=== PATIENT | male | born 1945 | race Caucasian/White ===

== ENCOUNTER 2016-08-22 09:46 | Day surgery (SDC) | payer OTHER, BC ==
[2016-08-20 12:10] VITALS: BMI 48.7
[2016-08-22] MEDS: TROPICAMIDE 1% OPHTH SOLN 15 ML BOTTLE ONE ×3 (09:45→10:15)
[2016-08-22] MEDS: CIPROFLOXACIN 0.3% EYE DROPS 5 ML BOTTLE ONE ×3 (09:45→10:14)
[2016-08-22] MEDS: FLURBIPROFEN 0.03% OPHTH SOLN 2.5 ML BOTTLE ONE ×3 (09:45→10:15)
[2016-08-22] MEDS: PHENYLEPHRINE 2.5% OPHTH SOLN 15 ML BOTTLE ONE ×3 (09:45→10:15)
[2016-08-22] MEDS: CYCLOPENTOLATE HCL 1% OPHTH SOLN 2 ML BOTTLE ONE ×3 (09:45→10:14)
[~2016-08-22 09:46] MED LIST: ACETAMINOPHEN 325 MG TABLET (FP) PO PRN; CIPROFLOXACIN HCL 0.3% OPHTH 2.5ML BOTTLE OP SCH; CYCLOPENTOLATE HCL 1% OPHTH SOLN 2 ML BOTTLE OP SCH; FLURBIPROFEN 0.03% OPHTH SOLN 2.5 ML BOTTLE OP SCH; PHENYLEPHRINE 2.5% OPHTH SOLN 15 ML BOTTLE OP SCH; TROPICAMIDE 1% OPHTH SOLN 15 ML BOTTLE OP SCH
[2016-08-22] MEDS ORDERED: LIDOCAINE HCL 2% JELLY (5 ML/TUBE) TP ONE (10:30)
[2016-08-22] MEDS ORDERED: PHENYLEPHRINE/KETOROLAC 4 ML VIAL IO ONE ×2 (10:30→10:53)
[2016-08-22] MEDS ORDERED: MIDAZOLAM HCL 2 MG/2 ML SINGLE DOSE VIAL ONE (10:39)
[2016-08-22] MEDS ORDERED: POVIDONE-IODINE 5% OPHTHALMIC PREP 30 ML SOLUTION OD ONE (10:43)
[2016-08-22] MEDS ORDERED: LIDOCAINE HCL 1% PRESERVATIVE FREE - 30ML VIAL IO ONE (10:53)
[2016-08-22] MEDS ORDERED: TRYPAN BLUE 0.5 ML DISP.SYRIN IO ONE (10:53)
[2016-08-22] MEDS ORDERED: CHONDROITIN SU A/HYALUR SOD 1 KIT IO ONE (10:53)
[2016-08-22] MEDS ORDERED: BSS (NA/CA/MG/K) BALANCED SALT SOLUTION OPHTH SOLN 15 ML BOTTLE OD ONE (10:53)
[2016-08-22 11:45] VITALS: TEMP 97.6
[2016-08-22 13:21] VITALS: BP 98/54; PULSE 75
--- NOTE | 2016-08-23 03:00 | OP ---
DATE OF OPERATION: PREOPERATIVE DIAGNOSIS: Cataract, right eye. ASSOCIATED DIAGNOSIS: Flomax user and 5-mm pupil. POSTOPERATIVE DIAGNOSIS: Cataract, right eye. 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 OPERATION: Phacoemulsification of right cataract with capsulorrhexis with Trypan blue and posterior chamber intraocular lens implantation. Lens used SN60WF, 17.5 Diopter power, Serial No. [id number]. ANESTHESIA: Topical MAC. COMPLICATIONS: None. PROCEDURE: The patient was brought to the operating room and correctly identified along with the operative site and the correct intraocular lens obando. He was then prepped and draped in the usual sterile fashion including 5% Betadine solution in the conjunctival sac and an eyelid drape. An eyelid speculum was then placed into the right eye. The eye was inspected, and a 5-mm pupil was noted despite multiple sets of dilating drops. The paracentesis port was created and intracameral lidocaine was given. BSS which had been infused with Omidria from the phaco machine was given intracamerally as well to attempt to further dilate the pupil. This did not yield any larger pupil, however. The capsule was then stained with Trypan blue beneath an air bubble, and the Trypan blue irrigated out from the eye. Viscoelastic was then injected to inflate the anterior chamber, and a temporal clear corneal wound was created. A continuous circular capsulorrhexis was then performed. The nucleus was then hydro-dissected with BSS and removed with phacoemulsification via the divide and conquer approach. Upon the last quadrant, the pupil was noted immediately to begin to constrict; however, the remainder of the nucleus as well as epinuclear and cortical material were removed without complication. Viscoelastic was then injected to viscodilate the pupil as well as inflate the capsular bag. The lens was injected into capsular bag. The viscoelastic was removed from the eye. Once again the pupil was noted to be approximately 4 to 5 mm. At the end of the procedure, the intraocular lens was noted to be well centered and covered by the anterior capsule border. All wounds were tested and found to be watertight, no suture was placed. Topical Vancomycin was placed and the eye patched and shielded. The patient was then discharged from the operating room in stable condition. KERLINE NORIEGA M.D. [id number] MTDD
== END 2016-08-22 12:45 | disposition home or self-care (01) ==
LOC: JASU-SURG 09:46
PROVIDERS: ATTEND Ophthalmology
PROC: 08RJ3JZ Replacement of Right Lens with Synthetic Substitute, Percutaneous Approach (ICD-10-PCS; principal; 2016-08-22 10:00)
DX: H26.9 Unspecified cataract (principal); H57.03 Miosis; H21.81 Floppy iris syndrome
CPT/HCPCS: C9447

== ENCOUNTER 2016-09-19 09:21 | Day surgery (SDC) | payer OTHER, BC ==
[2016-08-31 13:11] VITALS: BMI 48.7
[2016-09-19] MEDS ORDERED: PHENYLEPHRINE/KETOROLAC 4 ML VIAL IO ONE (09:30)
[2016-09-19] MEDS ORDERED: CYCLOPENTOLATE HCL 1% OPHTH SOLN 2 ML BOTTLE ONE (09:44)
[2016-09-19] MEDS ORDERED: TROPICAMIDE 1% OPHTH SOLN 15 ML BOTTLE ONE (09:44)
[2016-09-19] MEDS ORDERED: CIPROFLOXACIN 0.3% EYE DROPS 5 ML BOTTLE ONE (09:44)
[2016-09-19] MEDS ORDERED: FLURBIPROFEN 0.03% OPHTH SOLN 2.5 ML BOTTLE ONE (09:44)
[2016-09-19] MEDS ORDERED: PHENYLEPHRINE 2.5% OPHTH SOLN 15 ML BOTTLE ONE (09:45)
[2016-09-19] MEDS ORDERED: MIDAZOLAM HCL 2 MG/2 ML SINGLE DOSE VIAL ONE (09:53)
[2016-09-19] MEDS ORDERED: TROPICAMIDE 1% OPHTH SOLN 15 ML BOTTLE OS ONE ×2 (10:15→10:25)
[2016-09-19] MEDS ORDERED: FLURBIPROFEN 0.03% OPHTH SOLN 2.5 ML BOTTLE OS ONE ×2 (10:15→10:25)
[2016-09-19] MEDS ORDERED: PHENYLEPHRINE 2.5% OPHTH SOLN 15 ML BOTTLE OS ONE ×2 (10:15→10:25)
[2016-09-19] MEDS ORDERED: CYCLOPENTOLATE HCL 1% OPHTH SOLN 2 ML BOTTLE OS ONE ×2 (10:15→10:25)
[2016-09-19] MEDS ORDERED: INSULIN (NOVOLOG) ASPART 100 UNITS/ML 10ML VIAL SQ ONE (10:15)
[2016-09-19] MEDS ORDERED: CIPROFLOXACIN HCL 0.3% OPHTH 2.5ML BOTTLE OS ONE ×2 (10:15→10:25)
[2016-09-19 10:19] VITALS: BP 114/66; PULSE 76; TEMP 97.8
== END 2016-09-19 11:41 | disposition home or self-care (01) ==
LOC: JASU-SURG 09:21
PROVIDERS: ATTEND Ophthalmology
PROC: 08Q0XZZ Repair Right Eye, External Approach (ICD-10-PCS; principal; 2016-09-19)
DX: Z53.8 Procedure and treatment not carried out for other reasons (principal)

== ENCOUNTER 2016-10-10 08:10 | Day surgery (SDC) | payer OTHER, BC ==
[2016-10-09 13:54] VITALS: BMI 48.7
[~2016-10-10 08:10] MED LIST changes: +BSS (NA/CA/MG/K) BALANCED SALT SOLUTION OPHTH SOLN 15 ML BOTTLE OS ONE; -CIPROFLOXACIN HCL 0.3% OPHTH 2.5ML BOTTLE OP SCH; -CYCLOPENTOLATE HCL 1% OPHTH SOLN 2 ML BOTTLE OP SCH; -FLURBIPROFEN 0.03% OPHTH SOLN 2.5 ML BOTTLE OP SCH; +LIDOCAINE HCL 2% JELLY (5 ML/TUBE) TP ONE; -PHENYLEPHRINE 2.5% OPHTH SOLN 15 ML BOTTLE OP SCH; +PHENYLEPHRINE/KETOROLAC 4 ML VIAL IO ONE; +POVIDONE-IODINE 5% OPHTHALMIC PREP 30 ML SOLUTION OS ONE; -TROPICAMIDE 1% OPHTH SOLN 15 ML BOTTLE OP SCH
[2016-10-10] MEDS: CIPROFLOXACIN HCL 0.3% OPHTH 2.5ML BOTTLE OP SCH ×3 (08:35→08:45)
[2016-10-10] MEDS: TROPICAMIDE 1% OPHTH SOLN 15 ML BOTTLE OP SCH ×3 (08:35→08:45)
[2016-10-10] MEDS: PHENYLEPHRINE 2.5% OPHTH SOLN 15 ML BOTTLE OP SCH ×3 (08:35→08:45)
[2016-10-10] MEDS: FLURBIPROFEN 0.03% OPHTH SOLN 2.5 ML BOTTLE OP SCH ×3 (08:35→08:45)
[2016-10-10] MEDS: CYCLOPENTOLATE HCL 1% OPHTH SOLN 2 ML BOTTLE OP SCH ×3 (08:35→08:45)
[2016-10-10] MEDS ORDERED: LIDOCAINE HCL 2% JELLY (5 ML/TUBE) TP ONE (09:00)
[2016-10-10] MEDS ORDERED: MIDAZOLAM HCL 2 MG/2 ML SINGLE DOSE VIAL ONE (09:13)
[2016-10-10] MEDS ORDERED: POVIDONE-IODINE 5% OPHTHALMIC PREP 30 ML SOLUTION OS ONE (09:18)
[2016-10-10] MEDS ORDERED: LIDOCAINE HCL 1% PRESERVATIVE FREE - 30ML VIAL IO ONE (09:25)
[2016-10-10] MEDS ORDERED: BSS (NA/CA/MG/K) BALANCED SALT SOLUTION OPHTH SOLN 15 ML BOTTLE OS ONE (09:25)
[2016-10-10] MEDS ORDERED: CHONDROITIN SU A/HYALUR SOD 1 KIT IO ONE (09:25)
[2016-10-10] MEDS ORDERED: TRYPAN BLUE 0.5 ML DISP.SYRIN IO ONE (09:25)
[2016-10-10] MEDS ORDERED: PHENYLEPHRINE/KETOROLAC 4 ML VIAL IO ONE (09:33)
[2016-10-10 10:03] VITALS: TEMP 97.9
[2016-10-10 11:39] VITALS: BP 103/57
[2016-10-10 11:40] VITALS: PULSE 78
--- NOTE | 2016-10-10 15:43 | OP ---
DATE OF OPERATION: DATE OF DICTATION: 10/10/2016 PREOPERATIVE DIAGNOSIS: Cataract left eye. ASSOCIATED DIAGNOSIS: Flomax user and persistent miosis. POSTOPERATIVE DIAGNOSIS: Cataract left eye. Intraoperative floppy iris syndrome. PROCEDURE: Phacoemulsification of left cataract with capsulorrhexis and Trypan blue and posterior chamber intraocular lens implantation. Lens used SN60WF, 16.5 Diopter power, Serial No. [id number]. ANESTHESIA: Topical MAC. COMPLICATIONS: None. PROCEDURE: The patient was brought to the operating room and correctly identified along with the operative site as well as correct intraocular lens obando. The patient was then prepped and draped in the usual sterile fashion including 5% Betadine solution in the conjunctival sac and an eyelid drape. An eyelid speculum was then placed into the left eye. The cataract was inspected and a 5-mm pupil was noted with the cortical cataract. A paracentesis port was created and intracameral lidocaine 0.5 mL of 1% preservative-free lidocaine was given as well 0.2 mL of the BSS which had been spiked with Omidria that was given intracameral as well to try to dilate the pupil. The pupil did not dilate further. An air bubble was then placed into the anterior chamber and the capsule stained with Trypan blue to assist with the capsulorrhexis. Viscoelastic was placed into the eye and a temporal clear corneal wound was created. The pupil was noted to expand to approximately 6-mm. A continuous circular capsulorrhexis was subsequently performed. The nucleus was then hydro-dissected with BSS and removed with phacoemulsification. During the phacoemulsification, the iris was noted to be very floppy. However, the nucleus was still removed without any complication. The epinuclear and cortical material were then irrigated and aspirated from the eye. Once again, the iris was noted to be floppy. Viscoelastic was then injected to inflate the anterior chamber and inflate the capsular bag. The lens was injected into the capsular bag. The Viscoelastic was then irrigated and aspirated from the eye. All wounds were then tested and found to be watertight. No suture was placed. The lens was noted to be well centered and covered by the anterior capsular border. Topical Vancomycin was given. The eye was patched and shielded. The patient was discharged from the operating room in stable condition. Olena [id number] MTDAlice
== END 2016-10-10 11:00 | disposition home or self-care (01) ==
LOC: JASU-SURG 08:10
PROVIDERS: ATTEND Ophthalmology
PROC: 08RK3JZ Replacement of Left Lens with Synthetic Substitute, Percutaneous Approach (ICD-10-PCS; principal; 2016-10-10 09:00)
DX: H26.9 Unspecified cataract (principal); H57.03 Miosis; H21.81 Floppy iris syndrome; T44.6X5A Adverse effect of alpha-adrenoreceptor antagonists, initial encounter
CPT/HCPCS: C9447

== ENCOUNTER 2018-10-27 12:14 | Day surgery (SDC) | payer OTHER, BC ==
[2018-10-27 12:33] VITALS: BMI 46.9
--- NOTE | 2018-10-27 14:02 | OP ---
Operative Note - Note: Operative Date: 10/27/18 Pre-Operative Diagnosis: Urinary retention Incontinence Operation: Placement of suprapubic tube Findings: bladder erythema Post-Operative Diagnosis: Same as Pre-op Surgeon: Kuldeep Montana MD. Anesthesia: Spinal Estimated Blood Loss (mls): 10 Drains & Tubes with Location: Suprapubic tube Operative Report Dictated: Yes
[2018-10-27] MEDS ORDERED: ceFAZolin SODIUM 1 GM VIAL IVPB ONE (14:30)
[2018-10-27] MEDS ORDERED: LIDOCAINE HCL 2% (50ML VIAL) NR ONE ×2 (14:41)
[2018-10-27] MEDS ORDERED: ACETAMINOPHEN 325 MG TABLET (FP) PO PRN (15:45)
[2018-10-27] MEDS ORDERED: ONDANSETRON 4 MG/2 ML VIAL IVPUSH PRN (15:45)
[2018-10-27 17:48] VITALS: TEMP 98.2
[2018-10-27 19:31] VITALS: BP 147/91; PULSE 77
--- NOTE | 2018-11-20 13:53 | OP ---
DATE OF OPERATION: 10/27/2018 PREOPERATIVE DIAGNOSES: Urinary retention, incontinence. POSTOPERATIVE DIAGNOSES: Urinary retention, incontinence. OPERATION: Placement of suprapubic tube. HISTORY: A 73-year-old gentleman with a chronic suprapubic tube, who was seen in the emergency room recently after self-dislodging. The patient has been managed with a Santizo catheter. After discussing treatment options and reviewing the long-term plan, it was decided to continue with suprapubic tube drainage. Risks and benefits were explained. All questions were answered. BRIEF OPERATIVE NOTE: Patient brought to the operating room, placed in supine position. Due to the patient's morbid obesity, he was placed in a semi-Trendelenburg position after general anesthesia was administered. Spinal anesthesia was attempted, however, was unsuccessful. At this time, intravenous antibiotics were given. A Lowsley transurethral instrument was placed. Lidocaine 2%, approximately 10 mL, was injected subcutaneously. A transverse incision was made approximately 2 cm. Again, due to patient's body habitus, the Lowsley was somewhat deep within the subcutaneous tissue. At this time, a catheter was placed into the Lowsley instrument. The catheter was then brought out transurethrally. At this time, a cystoscopy was performed. The position was noted to be in normal position, pulling the catheter tip back into the bladder. The balloon was inflated with approximately 10 mL of normal saline. There was no evidence of active bleeding. At this time, the incision was closed using a subcuticular 3-0 chromic as well as skin sutures in interrupted fashion. The tube was then secured with nylon suture. The patient was brought to the recovery room in stable and satisfactory condition. Olena [id number]
== END 2018-10-27 19:10 | disposition home or self-care (01) ==
LOC: JASU-SURG 12:14
PROVIDERS: ATTEND Urology
PROC: 0T9B30Z Drainage of Bladder with Drainage Device, Percutaneous Approach (ICD-10-PCS; principal; 2018-10-27 14:00)
DX: R33.9 Retention of urine, unspecified (principal); R32 Unspecified urinary incontinence; E66.01 Morbid (severe) obesity due to excess calories; E11.9 Type 2 diabetes mellitus without complications; I10 Essential (primary) hypertension; G47.30 Sleep apnea, unspecified; I50.9 Heart failure, unspecified
CPT/HCPCS: 82962; 94760

== ENCOUNTER 2019-01-01 15:22 | Inpatient (IN) | payer OTHER, BC ==
--- NOTE | 2019-01-01 15:29 | PDOC ---
Rapid Medical Evaluation Chief Complaint: Wound Time Seen by Provider: 01/01/19 15:28 Medical Evaluation: Allergies Allergy/AdvReac Type Severity Reaction Status Date / Time lisinopril Allergy Swelling Verified 10/10/16 08:47 01/01/19 15:28 I have performed a brief in-person evaluation of this patient. The patient presents with a chief complaint of: sent by wound care for admission Pertinent physical exam findings: wounds to BLE I have ordered the following: admission orders The patient will proceed to the ED for further evaluation. Discharge Disposition - Diagnosis Leg wound, right - Referrals - Patient Instructions - Post Discharge Activity
[2019-01-01 17:14] LABS: BASO % 0.7 % (0-2.0); EOS % 0.5 % (0-4.5); HEMATOCRIT 44.9 % (35.4-49); HEMOGLOBIN 14.8 GM/dL (11.7-16.9); LYMPH % 5.8 % (8-40); MCH 27.3 pg (25.7-33.7); MCHC 32.9 g/dl (32.0-35.9); MEAN CELL VOLUME 82.8 fl (80-96); MEAN PLT VOLUME 8.4 fl (7.5-11.1); MONO % 7.3 % (3.8-10.2); NEUT % 85.7 % (42.8-82.8); PLATELET COUNT 215 K/MM3 (134-434); RBC 5.42 M/mm3 (4.00-5.60); RDW 19.4 % (11.9-15.9); WHITE BLOOD COUNT 12.4 K/mm3 (4.0-10.0)
[2019-01-01] MEDS ORDERED: PIPERACILLIN/TAZOB 4.5 GM 4.5 GM in DEXTROSE 5%-WATER 100 ML IVPB ONE (17:21)
[2019-01-01] MEDS ORDERED: VANCOMYCIN 1 GM in D5W (PRE-DOCKED) 1,000 MG/250 ML IVPB ONE (17:21)
--- NOTE | 2019-01-01 17:21 | PDOC ---
History of Present Illness - General Chief Complaint: Wound Stated Complaint: WOUND INFECTION Time Seen by Provider: 01/01/19 15:28 History Source: Patient Exam Limitations: No Limitations - History of Present Illness Initial Comments: 01/01/19 17:22 73 yo male pmh HTN, urinary incontinence requiring suprapubic catheter, DM and chronic diabetic foot ulcers presents [facility] (Dr. Rosas ) for admission for diabetic foot ulcers requiring IV antibiotics. Pt states both feet are swollen with foul smelling clear drainage for the past 1 week but denies S/C/N/V, abdominal pain, CP, SOB, calf tenderness, recent travel. Pt at baseline health and ADLs. Past History - Past Medical History Allergies/Adverse Reactions: Allergies Allergy/AdvReac Type Severity Reaction Status Date / Time lisinopril Allergy Swelling Verified 01/01/19 15:30 Home Medications: Ambulatory Orders Avodart 0.5 mg PO DAILY 06/28/11 Klor-Con-Ef 25 Meq Tab Eff 20 meq PO BID 06/28/11 Xalatan Ophth Drops 1 gtt OU HS 06/28/11 Tamsulosin HCl [Flomax] 0.4 mg PO DAILY 02/27/13 Glyburide/Metformin HCl [Glyburide-Metformin 5-500 mg] 1 each PO DAILY 10/09/16 Oxycodone HCl/Acetaminophen [Percocet 5-325 mg Tablet] 1 tab PO Q4H PRN Sitagliptin Phos/Metformin HCl [Janumet 50-500 mg Tablet] 1 each PO DAILY Torsemide [Demadex] 5 mg PO DAILY 10/09/16 Apixaban [Eliquis] 5 mg PO DAILY 10/27/18 Bumetanide 2 mg PO DAILY 10/27/18 Bupropion HCl [Wellbutrin Sr] 100 mg PO DAILY 10/27/18 Escitalopram Oxalate [Lexapro -] 10 mg PO DAILY 10/27/18 Gabapentin [Neurontin -] 300 mg PO DAILY 10/27/18 Hydralazine HCl 10 mg PO DAILY 10/27/18 Insulin Glargine,Hum.rec.anlog [Toujeo Solostar] 0 unit SQ DAILY 10/27/18 Insulin Lispro [Humalog] 0 unit SQ DAILY 10/27/18 Metoprolol Tartrate [Lopressor -] 25 mg PO DAILY 10/27/18 Mirabegron [Myrbetriq] 50 mg PO DAILY 10/27/18 Anemia: No Asthma: No Cancer: No Cardiac Disorders: Yes CVA: No COPD: No CHF: Yes Dementia: Yes (DEMENTIA BEGINNING) Diabetes: Yes GI Disorders: No Disorders: Yes (YOUSIF CATH) HTN: Yes Hypercholesterolemia: Yes Liver Disease: No Seizures: No Thyroid Disease: No Other medical history: obese - Surgical History Abdominal Surgery: Yes (2 hernia repairs) Neurologic Surgery: No Orthopedic Surgery: Yes (bilateral knee replacements) - Suicide/Smoking/Psychosocial Hx Smoking History: Never smoked Have you smoked in the past 12 months: No Information on smoking cessation initiated: No Hx Alcohol Use: No Drug/Substance Use Hx: No Substance Use Type: None Hx Substance Use Treatment: No Review of Systems - Review of Systems Constitutional: No: Chills, Fever Respiratory: No: Shortness of Breath Cardiac (ROS): Yes: Edema (chronic bilateral LL). No: Chest Pain ABD/GI: No: Constipated, Diarrhea, Nausea, Vomiting : Yes: Other (suprapubic catheter) Musculoskeletal: No: Back Pain Neurological: No: Numbness, Paresthesia *Physical Exam - Vital Signs Last Vital Signs Temp Pulse Resp BP Pulse Ox 98.2 F 62 19 126/74 95 01/01/19 15:28 01/01/19 15:28 01/01/19 15:28 01/01/19 15:28 01/01/19 15:28 - Physical Exam General Appearance: Yes: Nourished, Appropriately Dressed. No: Apparent Distress HEENT: positive: EOMI, Normal Voice Neck: positive: Supple. negative: Carotid bruit Respiratory/Chest: positive: Lungs Clear, Normal Breath Sounds. negative: Respiratory Distress, Rapid RR, Crackles, Rales, Rhonchi, Wheezing Cardiovascular: positive: Regular Rhythm, Regular Rate, S1, S2. negative: Edema , JVD, Murmur Vascular Pulses: Dorsalis-Pedis (R): 2+, Doralis-Pedis (L): 2+ Gastrointestinal/Abdominal: positive: Flat, Soft. negative: Protuberent, Distended, Guarding, Rebound, Tenderness Musculoskeletal: negative: CVA Tenderness Extremity: positive: Other (bilateral diabetic foot ulcers with drainage) Integumentary: positive: Normal Color, Dry, Warm Neurologic: positive: Fully Oriented, Alert, Normal Mood/Affect, Normal Response ED Treatment Course - LABORATORY CBC & Chemistry Diagram: 01/01/19 16:40 01/01/19 16:40 - ADDITIONAL ORDERS Additional order review: 01/01/19 16:40 RBC 5.42 MCV 82.8 MCHC 32.9 RDW 19.4 H MPV 8.4 Neutrophils % 85.7 H Lymphocytes % 5.8 L Monocytes % 7.3 Eosinophils % 0.5 Basophils % 0.7 Medical Decision Making - Medical Decision Making 01/01/19 17:27 73 yo male pmh HTN, urinary incontinence requiring suprapubic catheter, DM and chronic diabetic foot ulcers presents [facility] (Dr. Rosas ) for admission for diabetic foot ulcers requiring IV antibiotics. Pt states both feet are swollen with foul smelling clear drainage for the past 1 week but denies S/C/N/V, abdominal pain, CP, SOB, calf tenderness, recent travel. Pt at baseline health and ADLs. vitals WNL, no systemic s/s of infection other than infected bilateral feet pre admission labs sent, EKG, CXR, blood cult, lactate, UA, UC See PE EKG shows A fib ventricular rate 89. no hx of afib, denies CP, palpitations, SOB. Will defer to admitting team for further treatment Pt given vanc/zosyn for empiric treatment Lactate 2.4, will give fluids Labs otherwise unremarkable Discussed case with Dr. Calderon who agrees to have pt admitted for IV antibiotics 01/01/19 17:[address] Ferrara, agrees to have pt admitted for antibiotics *DC/Admit/Observation/Transfer Diagnosis at time of Disposition: Leg wound, right, Right foot ulcer - Discharge Dispostion Condition at time of disposition: Stable Decision to Admit order: Yes - Referrals - Patient Instructions - Post Discharge Activity
[2019-01-01 17:25] LABS: ALBUMIN 3.4 g/dl (3.4-5.0); BILIRUBIN,TOTAL 1.1 mg/dL (0.2-1); CALCIUM 8.9 mg/dL (8.5-10.1); CREATININE 1.5 mg/dL (0.55-1.3); TOT PROT 7.9 g/dl (6.4-8.2)
[2019-01-01] MEDS ORDERED: VANCOMYCIN 1 GRAM (PRE-DOCKED) 1,000 MG/250 ML BAG IVPB ONE (17:30)
[2019-01-01] MEDS ORDERED: PIPERACILLIN/TAZOB 4.5 GM 4.5 GM/100 ML BAG IVPB ONE (17:30)
[2019-01-01] MEDS ORDERED: SODIUM CHLORIDE 1,000 ML IV STA (17:35)
--- NOTE | 2019-01-01 17:51 | PDOC ---
Attending Attestation - Resident Resident Name: LexiGarrick savage - ED Attending Attestation I have performed the following: I have examined & evaluated the patient, The case was reviewed & discussed with the resident, I agree w/resident's findings & plan - HPI HPI: 01/01/19 17:47 73 yo male pmh HTN, urinary incontinence requiring suprapubic catheter, DM and chronic diabetic foot ulcers presents [facility] (Dr. Rosas ) for admission for diabetic foot ulcers requiring IV antibiotics. Pt states both feet are swollen with foul smelling clear drainage for the past 1 week - Physicial Exam PE: 01/01/19 17:47 Agree with the resident's HPI and PE as documented in the electronic medical record. NAD, well appearing, EOMI, PERRL, nl conjunctiva, anicteric; neck supple. lungs clear, RRR, abdomen soft nontender. VIRGEN x4, b/l feet neuropathy. +bilateral peripheral edema, 4+ edema right dorsal foot with anterior ulcer, +serosanguinous drainage nontender no warmth no crepitus 1+ pedal pulses. cap refill <2 sec - Medical Decision Making 01/01/19 17:48 hpi as documented VS reviewed, wnl no fever or systemic findings DDX osteomyelitis, cellulitis, wound infection, bacteremia. ulcer, gangrene. labs unremarkable - lactic elevated, 2.4, give hydration, recheck. likely from poor clearance/infection or dehydration cultures taken - wound and blood xray IV zosyn and vancomycin for coverage, given risk factors, comorbidities/poor wound healing admit to hospitalist team for further medical management for foot ulcer/ superimposed infection podiatry cs as inpatient., Dr Rosas 01/01/19 17:50
[2019-01-01 18:22] LABS: EPI CELLS 1.2 /HPF (0-5/HPF); HYALINE CASTS 14 /lpf (0-8); PH,URINE 7.5 (5.0-8.0); URINE APPEARANCE CLOUDY; URINE BILIRUBIN NEGATIVE (NEGATIVE); URINE COLOR YELLOW; URINE GLUCOSE (UA) NEGATIVE (NEGATIVE); URINE KETONE NEGATIVE (NEGATIVE); URINE LEUK ESTERASE 3+ (NEGATIVE); URINE NITRITE POSITIVE (NEGATIVE); URINE PROTEIN 1+ (NEGATIVE); URINE RBC 4 /hpf (0-4); URINE WBC 57 /hpf (0-5)
--- NOTE | 2019-01-01 20:54 | HP ---
CHIEF COMPLAINT: swollen feet b/l PCP: HISTORY OF PRESENT ILLNESS: 73yo man sent in from podiatry clinic to the hospital after being found with b /l red, edematous, foul smelling feet. Patient reports that he has had his feet like this for the last week at least one week ER course was notable for: (1) zosyn (2) vancomycin (3) IV fluid Recent Travel: no PAST MEDICAL HISTORY: uncontrolled DM - for at least 5 years, morbid obesity, DM , HTN, depression, PAST SURGICAL HISTORY: abdominal hernia repair x2, b/l knee replacements Social History: Smoking: denied Alcohol: denied Drugs: denied Family History: no Allergies lisinopril Allergy (Verified 01/01/19 15:30) Swelling HOME MEDICATIONS: Home Medications Medication Instructions Recorded Avodart 0.5 mg PO DAILY 06/28/11 Klor-Con-Ef 25 Meq Tab Eff 20 meq PO BID 06/28/11 Xalatan Ophth Drops 1 gtt OU HS 06/28/11 Tamsulosin HCl [Flomax] 0.4 mg PO DAILY 02/27/13 Glyburide/Metformin HCl 1 each PO DAILY 10/09/16 [Glyburide-Metformin 5-500 mg] Oxycodone HCl/Acetaminophen 1 tab PO Q4H PRN 10/09/16 [Percocet 5-325 mg Tablet] Sitagliptin Phos/Metformin HCl 1 each PO DAILY 10/09/16 [Janumet 50-500 mg Tablet] Torsemide [Demadex] 5 mg PO DAILY 10/09/16 Apixaban [Eliquis] 5 mg PO DAILY 10/27/18 Bumetanide 2 mg PO DAILY 10/27/18 Bupropion HCl [Wellbutrin Sr] 100 mg PO DAILY 10/27/18 Escitalopram Oxalate [Lexapro -] 10 mg PO DAILY 10/27/18 Gabapentin [Neurontin -] 300 mg PO DAILY 10/27/18 Hydralazine HCl 10 mg PO DAILY 10/27/18 Insulin Glargine,Hum.rec.anlog 0 unit SQ DAILY 10/27/18 [Toujeo Solostar] Insulin Lispro [Humalog] 0 unit SQ DAILY 10/27/18 Metoprolol Tartrate [Lopressor -] 25 mg PO DAILY 10/27/18 Mirabegron [Myrbetriq] 50 mg PO DAILY 10/27/18 REVIEW OF SYSTEMS CONSTITUTIONAL: Absent: fever, chills, diaphoresis, generalized weakness, malaise, loss of appetite, weight change HEENT: Absent: rhinorrhea, nasal congestion, throat pain, throat swelling, difficulty swallowing, mouth swelling, ear pain, eye pain, visual changes CARDIOVASCULAR: Absent: chest pain, syncope, palpitations, irregular heart rate, lightheadedness , peripheral edema RESPIRATORY: Absent: cough, shortness of breath, dyspnea with exertion, orthopnea, wheezing, stridor, hemoptysis GASTROINTESTINAL: Absent: abdominal pain, abdominal distension, nausea, vomiting, diarrhea, constipation, melena, hematochezia GENITOURINARY: Absent: dysuria, frequency, urgency, hesitancy, hematuria, flank pain, genital pain MUSCULOSKELETAL: Absent: myalgia, arthralgia, joint swelling, back pain, neck pain present- b/l feet pain, swelling SKIN: Absent: rash, itching, pallor HEMATOLOGIC/IMMUNOLOGIC: Absent: easy bleeding, easy bruising, lymphadenopathy, frequent infections ENDOCRINE: Absent: unexplained weight gain, unexplained weight loss, heat intolerance, cold intolerance NEUROLOGIC: Absent: headache, focal weakness or paresthesias, dizziness, unsteady gait, seizure, mental status changes, bladder or bowel incontinence PSYCHIATRIC: Absent: anxiety, depression, suicidal or homicidal ideation, hallucinations. PHYSICAL EXAMINATION Vital Signs - 24 hr 01/01/19 15:28 Temperature 98.2 F Pulse Rate 62 Respiratory 19 Rate Blood Pressure 126/74 O2 Sat by Pulse 95 Oximetry (%) GENERAL: Awake, alert, and fully oriented, in no acute distress, morbidly obese HEAD: Normal with no signs of trauma. EYES: Pupils equal, round and reactive to light, extraocular movements intact, sclera anicteric, conjunctiva clear. No lid lag. EARS, NOSE, THROAT: Ears normal, nares patent, oropharynx clear without exudates. Moist mucous membranes. NECK: Normal range of motion, supple without lymphadenopathy, JVD, or masses. LUNGS: Breath sounds equal, clear to auscultation bilaterally. No wheezes, and no crackles. No accessory muscle use. HEART: Regular rate and rhythm, normal S1 and S2 without murmur, rub or gallop. ABDOMEN: Soft, obese, nontender, not distended, normoactive bowel sounds, no guarding, no rebound, no masses., suprapubic catheter MUSCULOSKELETAL: Normal range of motion at all joints. No bony deformities or tenderness. No CVA tenderness. UPPER EXTREMITIES: 2+ pulses, warm, well-perfused. No cyanosis. No clubbing. No peripheral edema. LOWER EXTREMITIES: 2+ pulses, warm, lower ext erythematous feet b/l, purulent d/ c from toes b/l appreciated- possible wet gangrene, erythema extends up to thighs b/l, NEUROLOGICAL: Cranial nerves II-XII intact. Normal speech. Normal gait. PSYCHIATRIC: Cooperative. Good eye contact. Appropriate mood and affect. SKIN: Warm, dry, normal turgor, no rashes or lesions noted, normal capillary refill. Laboratory Results - last 24 hr 01/01/19 01/01/19 01/01/19 16:40 16:40 16:40 WBC 12.4 H RBC 5.42 Hgb 14.8 Hct 44.9 MCV 82.8 MCH 27.3 MCHC 32.9 RDW 19.4 H Plt Count 215 MPV 8.4 Absolute Neuts (auto) 10.6 H Neutrophils % 85.7 H Lymphocytes % 5.8 L Monocytes % 7.3 Eosinophils % 0.5 Basophils % 0.7 Nucleated RBC % 0 Sodium 138 Potassium 4.0 Chloride 101 Carbon Dioxide 28 Anion Gap 10 BUN 33.0 H Creatinine 1.5 H Est GFR (CKD-EPI)AfAm 52.03 Est GFR (CKD-EPI)NonAf 44.89 Random Glucose 86 Lactic Acid 2.4 H* Calcium 8.9 Total Bilirubin 1.1 H AST 19 ALT 25 Alkaline Phosphatase 177 H Total Protein 7.9 Albumin 3.4 Urine Color Urine Appearance Urine pH Ur Specific [place] Urine Protein Urine Glucose (UA) Urine Ketones Urine Blood Urine Nitrite Urine Bilirubin Urine Urobilinogen Ur Leukocyte Esterase Urine WBC (Auto) Urine RBC (Auto) Urine Casts (Auto) U Pathogenic Cast Auto U Epithel Cells (Auto) Urine Bacteria (Auto) Urine Yeast (Auto) 01/01/19 18:00 WBC RBC Hgb Hct MCV MCH MCHC RDW Plt Count MPV Absolute Neuts (auto) Neutrophils % Lymphocytes % Monocytes % Eosinophils % Basophils % Nucleated RBC % Sodium Potassium Chloride Carbon Dioxide Anion Gap BUN Creatinine Est GFR (CKD-EPI)AfAm Est GFR (CKD-EPI)NonAf Random Glucose Lactic Acid Calcium Total Bilirubin AST ALT Alkaline Phosphatase Total Protein Albumin Urine Color Yellow Urine Appearance Cloudy Urine pH 7.5 Ur Specific [place] 1.010 Urine Protein 1+ H Urine Glucose (UA) Negative Urine Ketones Negative Urine Blood Negative Urine Nitrite Positive H Urine Bilirubin Negative Urine Urobilinogen 1.0 Ur Leukocyte Esterase 3+ H Urine WBC (Auto) 57 Urine RBC (Auto) 4 Urine Casts (Auto) 14 U Pathogenic Cast Auto None U Epithel Cells (Auto) 1.2 Urine Bacteria (Auto) 2406.0 Urine Yeast (Auto) None ASSESSMENT/PLAN: #73yo man with b/l foot cellulitis with possible wet gangrene - foul smelling erythematous feet b/l, discharge+ . Should r/o b/l osteomyelitis. -admit to med/surg -zosyn -vancomycin -culture from feet obtained -blood culture x2 -xray of feet b/l -crp, esr -mri of feet b/l -oxycodon prn for pain control -repeat lactate in am #ANNETTE- may be from infection, prerenal azotemia -i/o -daily weight -renal u/s -avoid nephrotoxins -IV fluid hydration #HTN -hydralazine -metoprolol #DM - uncontrolled hyperglycemia -novolog sliding scale -diabetic diet #A fib- rate controlled -c/w eliquis -metoprolol for rate control dvt ppx - on eliquis Visit type - Emergency Visit Emergency Visit: Yes ED Registration Date: 01/01/19 Care time: The patient presented to the Emergency Department on the above date and was hospitalized for further evaluation of their emergent condition. - New Patient This patient is new to me today: Yes Date on this admission: 01/01/19 - Critical Care Critical Care patient: No
[2019-01-01] MEDS ORDERED: SODIUM CHLORIDE 1,000 ML IV SCH (21:00)
[2019-01-01] MEDS: INSULIN SLIDING SCALE (NOVOLOG) 1 VIAL SQ SCH (21:36)
[2019-01-01] MEDS ORDERED: ACETAMINOPHEN 325 MG TABLET (FP) PO PRN (21:56)
[2019-01-01] MEDS: LATANOPROST 0.005% OPHTH SOLN 2.5ML BOTTLE OU SCH (23:55)
[2019-01-02] MEDS: INSULIN SLIDING SCALE (NOVOLOG) 1 VIAL SQ SCH ×4 (06:16→21:59)
--- NOTE | 2019-01-02 08:25 | CONSULT ---
Consult Consult Specialty:: Podiatry Reason for Consultation:: Weeping foot and leg wounds - Alcohol/Substance Use Hx Alcohol Use: No - Smoking History Smoking history: Never smoked Have you smoked in the past 12 months: No Home Medications - Allergies Allergies/Adverse Reactions: Allergies Allergy/AdvReac Type Severity Reaction Status Date / Time lisinopril Allergy Swelling Verified 01/01/19 15:30 - Home Medications Home Medications: Ambulatory Orders Avodart 0.5 mg PO DAILY 06/28/11 Klor-Con-Ef 25 Meq Tab Eff 20 meq PO BID 06/28/11 Xalatan Ophth Drops 1 gtt OU HS 06/28/11 Tamsulosin HCl [Flomax] 0.4 mg PO DAILY 02/27/13 Glyburide/Metformin HCl [Glyburide-Metformin 5-500 mg] 1 each PO DAILY 10/09/16 Oxycodone HCl/Acetaminophen [Percocet 5-325 mg Tablet] 1 tab PO Q4H PRN Sitagliptin Phos/Metformin HCl [Janumet 50-500 mg Tablet] 1 each PO DAILY Torsemide [Demadex] 5 mg PO DAILY 10/09/16 Apixaban [Eliquis] 5 mg PO DAILY 10/27/18 Bumetanide 2 mg PO DAILY 10/27/18 Bupropion HCl [Wellbutrin Sr] 100 mg PO DAILY 10/27/18 Escitalopram Oxalate [Lexapro -] 10 mg PO DAILY 10/27/18 Gabapentin [Neurontin -] 300 mg PO DAILY 10/27/18 Hydralazine HCl 10 mg PO DAILY 10/27/18 Insulin Glargine,Hum.rec.anlog [Toujeo Solostar] 0 unit SQ DAILY 10/27/18 Insulin Lispro [Humalog] 0 unit SQ DAILY 10/27/18 Metoprolol Tartrate [Lopressor -] 25 mg PO DAILY 10/27/18 Mirabegron [Myrbetriq] 50 mg PO DAILY 10/27/18 Physical Exam Vital Signs: Vital Signs Temperature 97.8 F 01/02/19 05:49 Pulse Rate 81 01/02/19 05:49 Respiratory Rate 20 01/02/19 05:49 Blood Pressure 112/61 01/02/19 05:49 O2 Sat by Pulse Oximetry (%) 96 01/01/19 21:30 Extremities: Yes: Other (nvs decreased b/l, +moderate to severe weeping edema b / lower extremity, +grade 2-3 wounds dorsal 2nd mpj b/l, +grade 1 wound sub met 1 right) Labs: CBC, BMP 01/01/19 16:40 01/01/19 16:40 Imaging - Results X-ray: Report Reviewed (b/l) Assessment/Plan fluid retention weeping foot and leg wounds cellulitis b/l lower extremities Awaiting ID and vascular recommendations. Swab open areas with betadine b/l feet and legs. Will follow. Read and appreciated radiology results.
[2019-01-02] MEDS: oxyCODONE HCL 5 MG TABLET PO PRN (09:00)
[2019-01-02] MEDS: GABAPENTIN 300 MG CAPSULE (FP) PO SCH (09:02)
[2019-01-02] MEDS: TAMSULOSIN HCL 0.4 MG CAP PO SCH (09:02)
[2019-01-02] MEDS: APIXABAN 5 MG TABLET PO SCH ×2 (09:03→21:59)
[2019-01-02] MEDS: ESCITALOPRAM OXALATE 10 MG TABLET (FP) PO SCH (09:03)
[2019-01-02] MEDS ORDERED: PT OWN MED DRAWER 7, Y5N ONE (09:05)
[2019-01-02] MEDS ORDERED: hydrALAZINE HCL 10 MG TABLET PO SCH (10:00)
[2019-01-02] MEDS ORDERED: METOPROLOL TARTRATE 25 MG TABLET (FP) PO SCH (10:00)
[2019-01-02] MEDS ORDERED: TORSEMIDE 5 MG TABLET PO SCH (10:00)
[2019-01-02] MEDS ORDERED: BUMETANIDE 1 MG TABLET PO SCH (10:00)
--- NOTE | 2019-01-02 10:12 | CON.ID ---
Consult Consult Specialty:: infectious diseases Referred by:: Reason for Consultation:: b/l foot infection - History of Present Illness Chief Complaint: swelling of the feet and drainage from them--specially rt one History of Present Illness: 73 yo male pmh HTN, urinary incontinence requiring suprapubic catheter, DM and chronic diabetic foot ulcers presents for admission for diabetic foot ulcers requiring IV antibiotics. Pt states both feet are swollen with foul smelling clear drainage for the past 1 week but denies S/C/N/V, abdominal pain, CP, SOB, calf tenderness, recent travel. Pt at baseline health and ADLs. according to the patient the left one has been like this for more than 3 weeks and the rt one occured in a week. he has been having leg swelling for more than 2 years,but according to him this problems now is only couple of weeks back about his feet - History Source History Provided By: Patient Limitations to Obtaining History: No Limitations - Alcohol/Substance Use Hx Alcohol Use: No - Smoking History Smoking history: Never smoked Have you smoked in the past 12 months: No Home Medications - Allergies Allergies/Adverse Reactions: Allergies Allergy/AdvReac Type Severity Reaction Status Date / Time lisinopril Allergy Swelling Verified 01/01/19 15:30 - Home Medications Home Medications: Ambulatory Orders Avodart 0.5 mg PO DAILY 06/28/11 Klor-Con-Ef 25 Meq Tab Eff 20 meq PO BID 06/28/11 Xalatan Ophth Drops 1 gtt OU HS 06/28/11 Tamsulosin HCl [Flomax] 0.4 mg PO DAILY 02/27/13 Glyburide/Metformin HCl [Glyburide-Metformin 5-500 mg] 1 each PO DAILY 10/09/16 Oxycodone HCl/Acetaminophen [Percocet 5-325 mg Tablet] 1 tab PO Q4H PRN Sitagliptin Phos/Metformin HCl [Janumet 50-500 mg Tablet] 1 each PO DAILY Torsemide [Demadex] 5 mg PO DAILY 10/09/16 Apixaban [Eliquis] 5 mg PO DAILY 10/27/18 Bumetanide 2 mg PO DAILY 10/27/18 Bupropion HCl [Wellbutrin Sr] 100 mg PO DAILY 10/27/18 Escitalopram Oxalate [Lexapro -] 10 mg PO DAILY 10/27/18 Gabapentin [Neurontin -] 300 mg PO DAILY 10/27/18 Hydralazine HCl 10 mg PO DAILY 10/27/18 Insulin Glargine,Hum.rec.anlog [Toujeo Solostar] 0 unit SQ DAILY 10/27/18 Insulin Lispro [Humalog] 0 unit SQ DAILY 10/27/18 Metoprolol Tartrate [Lopressor -] 25 mg PO DAILY 10/27/18 Mirabegron [Myrbetriq] 50 mg PO DAILY 10/27/18 Review of Systems - Review of Systems Constitutional: reports: No Symptoms Eyes: reports: No Symptoms HENT: reports: No Symptoms Neck: reports: No Symptoms Cardiovascular: reports: No Symptoms Respiratory: reports: No Symptoms Gastrointestinal: reports: No Symptoms Genitourinary: reports: No Symptoms Musculoskeletal: reports: Other Integumentary: reports: Blister, Erythema, Wound, Other (change in color) Neurological: reports: No Symptoms Endocrine: reports: No Symptoms Hematology/Lymphatic: reports: No Symptoms Psychiatric: reports: No Symptoms Physical Exam Vital Signs: Vital Signs Temperature 97.8 F 01/02/19 05:49 Pulse Rate 81 01/02/19 05:49 Respiratory Rate 20 01/02/19 05:49 Blood Pressure 112/61 01/02/19 05:49 O2 Sat by Pulse Oximetry (%) 96 01/01/19 21:30 Constitutional: Yes: Well Nourished, No Distress, Calm Cardiovascular: Yes: Pulse Irregular Respiratory: Yes: Regular, CTA Bilaterally Gastrointestinal: Yes: Normal Bowel Sounds, Soft Musculoskeletal: Yes: WNL Extremities: Yes: Erythema (of the foot,necrotic spot on the foot,draiange from the foot), Other Neurological: Yes: Alert, Oriented Psychiatric: Yes: Alert, Oriented Labs: CBC, BMP 01/01/19 16:40 01/01/19 16:40 Imaging - Results Chest X-ray: Report Reviewed, Image Reviewed X-ray: Report Reviewed, Image Reviewed Assessment/Plan ASSESSMENT/PLAN: #73yo man with b/l foot cellulitis w- foul smelling erythematous feet b/l, discharge+ . #ANNETTE- may be from infection, prerenal azotemia #HTN #DM A fib- plan will start patient on abx awaiting mri await cx report necrotic areas will d/w the podiatry team
--- NOTE | 2019-01-02 10:16 | PN ---
Progress Note, Physician Chief Complaint: AWAKE ALERT DENIES CP OR SOB EVENTS AND NOTES REVIEWED - Current Medication List Current Medications: Active Medications Acetaminophen (Tylenol -) 325 mg PO Q4H PRN PRN Reason: PAIN 6-10 Stop: 01/04/19 21:55 Last Admin: 01/02/19 09:02 Dose: 325 mg Apixaban (Eliquis -) 5 mg PO BID [facility] Last Admin: 01/02/19 09:03 Dose: 5 mg Bupropion HCl (Wellbutrin Xl -) 150 mg PO DAILY [facility] Last Admin: 01/02/19 09:03 Dose: 150 mg Dutasteride (Avodart -) 0.5 mg PO DAILY [facility] Escitalopram Oxalate (Lexapro -) 10 mg PO DAILY [facility] Last Admin: 01/02/19 09:03 Dose: 10 mg Gabapentin (Neurontin -) 300 mg PO DAILY [facility] Last Admin: 01/02/19 09:02 Dose: 300 mg Hydralazine HCl (Apresoline -) 10 mg PO DAILY [facility] Sodium Chloride (Normal Saline -) 1,000 mls @ 75 mls/hr IV ASDIR [facility] Last Admin: 01/01/19 23:55 Dose: 75 mls/hr Insulin Aspart (Novolog Vial Sliding Scale -) 1 vial SQ [facility]; Protocol Last Admin: 01/02/19 06:16 Dose: 2 units Latanoprost (Xalatan 0.005% Eye Drops -) 1 drop OU HS [facility] Last Admin: 01/01/19 23:55 Dose: 1 drop Metoprolol Tartrate (Lopressor -) 25 mg PO DAILY [facility] Oxycodone HCl (Roxicodone -) 5 mg PO Q4H PRN PRN Reason: PAIN 6-10 Last Admin: 01/02/19 09:00 Dose: 5 mg Tamsulosin HCl (Flomax -) 0.4 mg PO DAILY@0830 [facility] Last Admin: 01/02/19 09:02 Dose: 0.4 mg Torsemide (Demadex -) 5 mg PO DAILY [facility] - Objective Vital Signs: Vital Signs Temperature 97.8 F 01/02/19 05:49 Pulse Rate 81 01/02/19 05:49 Respiratory Rate 20 01/02/19 05:49 Blood Pressure 112/61 01/02/19 05:49 O2 Sat by Pulse Oximetry (%) 96 01/01/19 21:30 Constitutional: Yes: Mild Distress Eyes: Yes: WNL HENT: Yes: WNL Neck: Yes: WNL Cardiovascular: Yes: Regular Rate and Rhythm Respiratory: Yes: WNL Gastrointestinal: Yes: Abdomen, Obese Genitourinary: Yes: Yousif Present Musculoskeletal: Yes: Muscle Pain, Muscle Weakness Extremities: Yes: Erythema Integumentary: Yes: Erythema, Pressure Ulcer, Rash, Skin Tear Wound/Incision: Yes: Open to air, Excoriated, Unapproximated Neurological: Yes: Pre-Existing Deficit ...Motor Strength: LLE, RLE Psychiatric: Yes: WNL Labs: CBC, BMP 01/01/19 16:40 01/01/19 16:40 Problem List - Problems (1) Diabetes Code(s): E11.9 - TYPE 2 DIABETES MELLITUS WITHOUT COMPLICATIONS (2) Diabetes 1.5, managed as type 2 Code(s): E13.9 - OTHER SPECIFIED DIABETES MELLITUS WITHOUT COMPLICATIONS (3) CKD (chronic kidney disease) Code(s): N18.9 - CHRONIC KIDNEY DISEASE, UNSPECIFIED (4) Leg wound, right Code(s): S81.801A - UNSPECIFIED OPEN WOUND, RIGHT LOWER LEG, INITIAL ENCOUNTER (5) Right foot ulcer Code(s): L97.519 - NON-PRS CHRONIC ULCER OTH PRT RIGHT FOOT W UNSP SEVERITY (6) Venous stasis dermatitis of both lower extremities Code(s): I87.2 - VENOUS INSUFFICIENCY (CHRONIC) (PERIPHERAL) Assessment/Plan IV ABX ID/PODIATRY WORKUP CKD RENAL EVAL YOUSIF IN PLACE PT EVAL WOUND CARE BGM CONTROL
--- NOTE | 2019-01-02 10:17 | ECHO ---
Name: RHONDA SOLIMAN Exam:Adult Echocardiogram Study Date: 01/02/2019 07:51 AM Age: 73 yrs Reason For Study: CHF Height: 70 in Weight: 310 lb BSA: 2.5 m2 Procedure The study was technically limited with all images being suboptimal in quality. Left Ventricle Left ventricular systolic function is severely reduced. There is severe global hypokinesis of the lef t ventricle. Right Ventricle The right ventricle is not well visualized. Atria The left atrium is moderately dilated. Mitral Valve Focal calcification on the tip anterior leaflet of mitral valve. There is no mitral valve stenosis. T here is mild mitral regurgitation. Tricuspid Valve The tricuspid valve is normal in structure and function. There is mild tricuspid regurgitation. Right ventricular systolic pressure is elevated at 50-60mmHg. Aortic Valve There is moderate aortic sclerosis.;. The aortic valve opens well. No hemodynamically significant marshall vular aortic stenosis. No aortic regurgitation is present. Pulmonic Valve The pulmonic valve is not well seen, but is grossly normal. There is no pulmonic valvular stenosis. Pericardium/Pleura There is no pericardial effusion. Interpretation Summary The study was technically limited with all images being suboptimal in quality. Left ventricular systolic function is severely reduced. The left atrium is moderately dilated. Focal calcification on the tip anterior leaflet of mitral valve. There is mild mitral regurgitation. There is mild tricuspid regurgitation. Right ventricular systolic pressure is elevated at 50-60mmHg. There is moderate aortic sclerosis.; No hemodynamically significant valvular aortic stenosis. There is no pericardial effusion. MD Cox *Delfino 01/02/2019 10:17 AM
[2019-01-02 10:30] LABS: EOS % 1.2 % (0-4.5); HEMATOCRIT 39.9 % (35.4-49); WHITE BLOOD COUNT 10.5 K/mm3 (4.0-10.0)
[2019-01-02 10:44] LABS: POTASSIUM 3.8 mmol/L (3.5-5.1)
[2019-01-02 10:46] LABS: BASO % 0.6 % (0-2.0); HEMOGLOBIN 13.2 GM/dL (11.7-16.9); LYMPH % 7.6 % (8-40); MCH 27.3 pg (25.7-33.7); MCHC 33.2 g/dl (32.0-35.9); MEAN CELL VOLUME 82.4 fl (80-96); MEAN PLT VOLUME 8.5 fl (7.5-11.1); MONO % 9.3 % (3.8-10.2); NEUT % 81.3 % (42.8-82.8); PLATELET COUNT 184 K/MM3 (134-434); RBC 4.84 M/mm3 (4.00-5.60)
[2019-01-02] MEDS ORDERED: DEXTROSE 5%-WATER - 50 ML IVPB ONE ×2 (10:52→17:58)
[2019-01-02] MEDS ORDERED: PIPERACILLIN/TAZOBACTAM 3.375 GM VIAL IVPB ONE ×2 (10:52→17:57)
[2019-01-02 11:05] LABS: BLOOD UREA NITROGEN 30.9 mg/dL (7-18); CALCIUM 8.7 mg/dL (8.5-10.1); CREATININE 1.5 mg/dL (0.55-1.3); POTASSIUM 3.7 mmol/L (3.5-5.1)
--- NOTE | 2019-01-02 13:17 | CONSULT ---
Consult Consult Specialty:: Nephrology Reason for Consultation:: CKD - History of Present Illness Chief Complaint: sent in from wound care History of Present Illness: Pt is a 73 year old male with pmhx of htn, urinary incontinance with suprapubic cath, DM, DFU and obesity who presents to the ER for lower ext ulcers. He was sent in for IV abx. He was found to have elevated creatinine and I was called to evaluate him. He denies history of CKD. He denies hematuria. He denies nsaid use. He is on diuretics at home for edema. He gets shortness of breath when he lays flat. He feels that his legs are very swollen. He denies chest pain. - History Source History Provided By: Patient, Medical Record - Past Medical History Cardio/Vascular: Yes: HTN Renal/: Yes: Other (suprapubic cath) Endocrine: Yes: Diabetes Mellitus - Alcohol/Substance Use Hx Alcohol Use: No - Smoking History Smoking history: Never smoked Have you smoked in the past 12 months: No Home Medications - Allergies Allergies/Adverse Reactions: Allergies Allergy/AdvReac Type Severity Reaction Status Date / Time lisinopril Allergy Swelling Verified 01/01/19 15:30 - Home Medications Home Medications: Ambulatory Orders Avodart 0.5 mg PO DAILY 06/28/11 Klor-Con-Ef 25 Meq Tab Eff 20 meq PO BID 06/28/11 Xalatan Ophth Drops 1 gtt OU HS 06/28/11 Tamsulosin HCl [Flomax] 0.4 mg PO DAILY 02/27/13 Glyburide/Metformin HCl [Glyburide-Metformin 5-500 mg] 1 each PO DAILY 10/09/16 Oxycodone HCl/Acetaminophen [Percocet 5-325 mg Tablet] 1 tab PO Q4H PRN Sitagliptin Phos/Metformin HCl [Janumet 50-500 mg Tablet] 1 each PO DAILY Torsemide [Demadex] 5 mg PO DAILY 10/09/16 Apixaban [Eliquis] 5 mg PO DAILY 10/27/18 Bumetanide 2 mg PO DAILY 10/27/18 Bupropion HCl [Wellbutrin Sr] 100 mg PO DAILY 10/27/18 Escitalopram Oxalate [Lexapro -] 10 mg PO DAILY 10/27/18 Gabapentin [Neurontin -] 300 mg PO DAILY 10/27/18 Hydralazine HCl 10 mg PO DAILY 10/27/18 Insulin Glargine,Hum.rec.anlog [Toujeo Solostar] 0 unit SQ DAILY 10/27/18 Insulin Lispro [Humalog] 0 unit SQ DAILY 10/27/18 Metoprolol Tartrate [Lopressor -] 25 mg PO DAILY 10/27/18 Mirabegron [Myrbetriq] 50 mg PO DAILY 10/27/18 Family Disease History - Family Disease History Family History: Denies Review of Systems - Review of Systems Constitutional: reports: No Symptoms Eyes: reports: No Symptoms HENT: reports: No Symptoms Neck: reports: No Symptoms Cardiovascular: reports: Edema Respiratory: reports: SOB, SOB on Exertion Gastrointestinal: reports: No Symptoms Genitourinary: reports: Incontinence Musculoskeletal: reports: No Symptoms Integumentary: reports: No Symptoms Neurological: reports: No Symptoms Endocrine: reports: No Symptoms Physical Exam Vital Signs: Vital Signs Temperature 98.4 F 01/02/19 10:00 Pulse Rate 50 L 01/02/19 10:00 Respiratory Rate 18 01/02/19 10:00 Blood Pressure 117/75 01/02/19 10:00 O2 Sat by Pulse Oximetry (%) 96 01/01/19 21:30 Constitutional: Yes: Calm Eyes: Yes: Conjunctiva Clear HENT: Yes: Atraumatic Neck: Yes: Supple Cardiovascular: Yes: S1, S2 Respiratory: Yes: CTA Bilaterally Gastrointestinal: Yes: Normal Bowel Sounds, Soft, Abdomen, Obese Renal/: Yes: WNL Musculoskeletal: Yes: WNL Edema: Yes Edema: LLE: 3+, RLE: 3+ Integumentary: Yes: Venous Stasis Changes Neurological: Yes: Oriented Psychiatric: Yes: Oriented Labs: CBC, BMP 01/02/19 09:48 01/02/19 09:48 Laboratory Tests 01/01/19 01/01/19 01/02/19 16:40 16:40 09:48 WBC 12.4 H 10.5 H BUN Creatinine 1.5 H 01/02/19 09:48 WBC BUN 30.9 H Creatinine 1.5 H Imaging - Results Ultrasound: Report Reviewed Problem List - Problems (1) CKD (chronic kidney disease) Code(s): N18.9 - CHRONIC KIDNEY DISEASE, UNSPECIFIED (2) Leg wound, right Code(s): S81.801A - UNSPECIFIED OPEN WOUND, RIGHT LOWER LEG, INITIAL ENCOUNTER (3) Venous stasis dermatitis of both lower extremities Code(s): I87.2 - VENOUS INSUFFICIENCY (CHRONIC) (PERIPHERAL) Assessment/Plan Current Medications Generic Name Dose Route Start Last Admin Trade Name Freq PRN Reason Stop Dose Admin Acetaminophen 325 mg 01/01/19 21:56 01/02/19 09:02 Tylenol - PO 01/04/19 21:55 325 mg Q4H PRN Administration PAIN 6-10 Apixaban 5 mg 01/02/19 10:00 01/02/19 09:03 Eliquis - PO 5 mg BID [facility] Administration Bupropion HCl 150 mg 01/02/19 10:00 01/02/19 09:03 Wellbutrin Xl - PO 150 mg DAILY [facility] Administration Dutasteride 0.5 mg 01/02/19 10:00 Avodart - PO DAILY [facility] Escitalopram Oxalate 10 mg 01/02/19 10:00 01/02/19 09:03 Lexapro - PO 10 mg DAILY [facility] Administration Gabapentin 300 mg 01/02/19 10:00 01/02/19 09:02 Neurontin - PO 300 mg DAILY [facility] Administration Sodium Chloride 1,000 mls @ 75 mls/hr 01/01/19 21:00 01/01/19 23:55 Normal Saline - IV 75 mls/hr ASDIR [facility] Administration Piperacillin Sod/Tazobactam 50 mls @ 100 mls/hr 01/02/19 10:30 Sod 3.375 gm/ Dextrose IVPB Q8H-IV [facility] Protocol Insulin Aspart 1 vial 01/01/19 22:00 01/02/19 06:16 Novolog Vial Sliding Scale - SQ 2 units ACHS [facility] Administration Protocol Latanoprost 1 drop 01/01/19 22:00 01/01/19 23:55 Xalatan 0.005% Eye Drops - OU 1 drop HS [facility] Administration Metoprolol Tartrate 25 mg 01/02/19 10:27 Lopressor - PO DAILY [facility] Oxycodone HCl 5 mg 01/01/19 21:56 01/02/19 09:00 Roxicodone - PO 5 mg Q4H PRN Administration PAIN 6-10 Tamsulosin HCl 0.4 mg 01/02/19 08:30 01/02/19 09:02 Flomax - PO 0.4 mg DAILY@0830 [facility] Administration Torsemide 5 mg 01/02/19 10:00 Demadex - PO DAILY [facility] Impression 1. CKD vs ANNETTE with unclear baseline 2. DM 3. DFU 4. HTN 5. obesity 6. suprapubic cath Plan - pt appears overloaded - d/c fluids - cont torsemide, increase dose - monitor renal function - monitor volume status - will need outpt records - follow cultures Dr Gongora
--- NOTE | 2019-01-02 13:35 | EKG ---
Test Reason : Blood Pressure : / mmHG Vent. Rate : 079 BPM Atrial Rate : 074 BPM P-R Int : 000 ms QRS Dur : 132 ms QT Int : 426 ms P-R-T Axes : 000 -24 118 degrees QTc Int : 488 ms ATRIAL FIBRILLATION WITH PREMATURE VENTRICULAR OR ABERRANTLY CONDUCTED COMPLEXES NON-SPECIFIC INTRA-VENTRICULAR CONDUCTION BLOCK LEFTWARD AXIS ABNORMAL ECG NO PREVIOUS ECGS AVAILABLE POOR DATA QUALITY, INTERPRETATION MAY BE ADVERSELY AFFECTED Confirmed by RHONDA JONES MD ([id number]) on 01/02/2019 1:35:15 PM Referred By: Confirmed By:RHONDA JONES MD
[2019-01-02] MEDS: DUTASTERIDE 0.5 MG CAP (FP) PO SCH (14:04)
[2019-01-02] MEDS: PIPERACILLIN/TAZOB 3.375 GM 3.375 GM in DEXTROSE 5%-WATER - 50 ML IVPB SCH ×2 (14:05→18:19)
[2019-01-02 21:33] LABS: EPI CELLS 0.6 /HPF (0-5/HPF); HYALINE CASTS 8 /lpf (0-8); PH,URINE 5.5 (5.0-8.0); URINE APPEARANCE CLOUDY; URINE BACTERIA 157.8 /hpf (NEGATIVE); URINE BILIRUBIN NEGATIVE (NEGATIVE); URINE COLOR YELLOW; URINE GLUCOSE (UA) NEGATIVE (NEGATIVE); URINE KETONE NEGATIVE (NEGATIVE); URINE LEUK ESTERASE 2+ (NEGATIVE); URINE NITRITE NEGATIVE (NEGATIVE); URINE PROTEIN 2+ (NEGATIVE); URINE RBC 52 /hpf (0-4); URINE WBC 67 /hpf (0-5)
[2019-01-02 21:38] LABS: RATIO URIN PROTEIN/URIN CREAT 1.78 MG/DL
[2019-01-02] MEDS: LATANOPROST 0.005% OPHTH SOLN 2.5ML BOTTLE OU SCH (22:10)
[2019-01-03] MEDS ORDERED: PIPERACILLIN/TAZOBACTAM 3.375 GM VIAL IVPB ONE ×3 (00:49→16:55)
[2019-01-03] MEDS ORDERED: DEXTROSE 5%-WATER - 50 ML IVPB ONE ×3 (00:49→16:55)
[2019-01-03] MEDS: PIPERACILLIN/TAZOB 3.375 GM 3.375 GM in DEXTROSE 5%-WATER - 50 ML IVPB SCH ×3 (01:37→17:47)
[2019-01-03] MEDS: INSULIN SLIDING SCALE (NOVOLOG) 1 VIAL SQ SCH ×4 (07:07→21:12)
[2019-01-03 08:08] LABS: BLOOD UREA NITROGEN 24.8 mg/dL (7-18); CREATININE 1.3 mg/dL (0.55-1.3); POTASSIUM 3.7 mmol/L (3.5-5.1)
[2019-01-03] MEDS ORDERED: PT OWN MED DRAWER 7, Y5N ONE ×2 (08:57→19:33)
[2019-01-03] MEDS: DUTASTERIDE 0.5 MG CAP (FP) PO SCH (09:08)
[2019-01-03] MEDS: GABAPENTIN 300 MG CAPSULE (FP) PO SCH (09:08)
[2019-01-03] MEDS: TAMSULOSIN HCL 0.4 MG CAP PO SCH (09:08)
[2019-01-03] MEDS: ESCITALOPRAM OXALATE 10 MG TABLET (FP) PO SCH (09:09)
[2019-01-03] MEDS: TORSEMIDE 10 MG TABLET PO SCH (09:09)
[2019-01-03] MEDS: APIXABAN 5 MG TABLET PO SCH ×2 (09:09→21:12)
[2019-01-03] MEDS: METOPROLOL TARTRATE 25 MG TABLET (FP) PO SCH (09:14)
--- NOTE | 2019-01-03 11:27 | PN ---
Progress Note, Physician History of Present Illness: saw no new issues - Current Medication List Current Medications: Active Medications Acetaminophen (Tylenol -) 325 mg PO Q4H PRN PRN Reason: PAIN 6-10 Stop: 01/04/19 21:55 Last Admin: 01/02/19 09:02 Dose: 325 mg Apixaban (Eliquis -) 5 mg PO BID [facility] Last Admin: 01/03/19 09:09 Dose: 5 mg Bupropion HCl (Wellbutrin Xl -) 150 mg PO DAILY [facility] Last Admin: 01/03/19 09:09 Dose: 150 mg Dutasteride (Avodart -) 0.5 mg PO DAILY [facility] Last Admin: 01/03/19 09:08 Dose: 0.5 mg Escitalopram Oxalate (Lexapro -) 10 mg PO DAILY [facility] Last Admin: 01/03/19 09:09 Dose: 10 mg Gabapentin (Neurontin -) 300 mg PO DAILY [facility] Last Admin: 01/03/19 09:08 Dose: 300 mg Piperacillin Sod/Tazobactam (Sod 3.375 gm/ Dextrose) 50 mls @ 100 mls/hr IVPB Q8H-IV [facility]; Protocol Last Admin: 01/03/19 09:07 Dose: 100 mls/hr Insulin Aspart (Novolog Vial Sliding Scale -) 1 vial SQ ACHS [facility]; Protocol Last Admin: 01/03/19 07:07 Dose: Not Given Latanoprost (Xalatan 0.005% Eye Drops -) 1 drop OU HS [facility] Last Admin: 01/02/19 22:10 Dose: 1 drop Metoprolol Tartrate (Lopressor -) 25 mg PO DAILY [facility] Last Admin: 01/03/19 09:14 Dose: 25 mg Oxycodone HCl (Roxicodone -) 5 mg PO Q4H PRN PRN Reason: PAIN 6-10 Last Admin: 01/02/19 09:00 Dose: 5 mg Tamsulosin HCl (Flomax -) 0.4 mg PO DAILY@0830 [facility] Last Admin: 01/03/19 09:08 Dose: 0.4 mg Torsemide (Demadex -) 10 mg PO DAILY [facility] Last Admin: 01/03/19 09:09 Dose: 10 mg - Objective Vital Signs: Vital Signs Temperature 97.7 F 01/03/19 06:00 Pulse Rate 82 01/03/19 06:00 Respiratory Rate 20 01/03/19 06:00 Blood Pressure 119/70 01/03/19 06:00 O2 Sat by Pulse Oximetry (%) 97 01/02/19 21:00 Constitutional: Yes: No Distress, Calm, Obese Cardiovascular: Yes: S1, S2 Respiratory: Yes: Regular, CTA Bilaterally Gastrointestinal: Yes: Normal Bowel Sounds, Soft Musculoskeletal: Yes: Other Extremities: Yes: Other Neurological: Yes: Alert, Oriented Psychiatric: Yes: Alert, Oriented Labs: CBC, BMP 01/02/19 09:48 01/03/19 07:11 Assessment/Plan ASSESSMENT/PLAN: #73yo man with b/l foot cellulitis w- foul smelling erythematous feet b/l, discharge+ . #ANNETTE- may be from infection, prerenal azotemia #HTN #DM A fib- plan abx awaiting mri await cx report necrotic areas will d/w the podiatry team
--- NOTE | 2019-01-03 14:25 | PN ---
Progress Note, Physician Chief Complaint: B/L foot cellulitis DM Afib History of Present Illness: Previous notes and events reviewed awake and alert NAD ambulating with walker foul smelling, serosanguinous discharge noted to B/L feel B/L pedal edema Vascular US shows nonocclusive thrombus in the left popliteal vein compatible with dvt - Current Medication List Current Medications: Active Medications Acetaminophen (Tylenol -) 325 mg PO Q4H PRN PRN Reason: PAIN 6-10 Stop: 01/04/19 21:55 Last Admin: 01/02/19 09:02 Dose: 325 mg Apixaban (Eliquis -) 5 mg PO BID [facility] Last Admin: 01/03/19 09:09 Dose: 5 mg Bupropion HCl (Wellbutrin Xl -) 150 mg PO DAILY [facility] Last Admin: 01/03/19 09:09 Dose: 150 mg Dutasteride (Avodart -) 0.5 mg PO DAILY [facility] Last Admin: 01/03/19 09:08 Dose: 0.5 mg Escitalopram Oxalate (Lexapro -) 10 mg PO DAILY [facility] Last Admin: 01/03/19 09:09 Dose: 10 mg Gabapentin (Neurontin -) 300 mg PO DAILY [facility] Last Admin: 01/03/19 09:08 Dose: 300 mg Piperacillin Sod/Tazobactam (Sod 3.375 gm/ Dextrose) 50 mls @ 100 mls/hr IVPB Q8H-IV [facility]; Protocol Last Admin: 01/03/19 09:07 Dose: 100 mls/hr Insulin Aspart (Novolog Vial Sliding Scale -) 1 vial SQ ACHS [facility]; Protocol Last Admin: 01/03/19 12:52 Dose: 4 units Latanoprost (Xalatan 0.005% Eye Drops -) 1 drop OU HS [facility] Last Admin: 01/02/19 22:10 Dose: 1 drop Metoprolol Tartrate (Lopressor -) 25 mg PO DAILY [facility] Last Admin: 01/03/19 09:14 Dose: 25 mg Oxycodone HCl (Roxicodone -) 5 mg PO Q4H PRN PRN Reason: PAIN 6-10 Last Admin: 01/02/19 09:00 Dose: 5 mg Tamsulosin HCl (Flomax -) 0.4 mg PO DAILY@0830 [facility] Last Admin: 07/13/19 09:08 Dose: 0.4 mg Torsemide (Demadex -) 10 mg PO DAILY [facility] Last Admin: 01/03/19 09:09 Dose: 10 mg - Objective Vital Signs: Vital Signs Temperature 97.7 F 01/03/19 06:00 Pulse Rate 82 01/03/19 06:00 Respiratory Rate 20 01/03/19 06:00 Blood Pressure 119/70 01/03/19 06:00 O2 Sat by Pulse Oximetry (%) 97 01/02/19 21:00 Constitutional: Yes: No Distress, Calm, Obese Eyes: Yes: Conjunctiva Clear HENT: Yes: Atraumatic Cardiovascular: Yes: Regular Rate and Rhythm Respiratory: Yes: Regular, CTA Bilaterally Gastrointestinal: Yes: Normal Bowel Sounds, Soft Genitourinary: Yes: Santizo Present Musculoskeletal: Yes: Muscle Weakness Extremities: Yes: WNL Edema: Yes Edema: LLE: 2+, RLE: 2+ Integumentary: Yes: Erythema (b/l foot), Other Wound/Incision: Yes: Open to air, Other (serosanguinous wound B/L foot) Neurological: Yes: Alert, Oriented Psychiatric: Yes: Alert, Oriented Labs: CBC, BMP 01/02/19 09:48 01/03/19 07:11 Microbiology 01/01/19 18:00 Foot - Right Heel Gram Stain - Final 01/01/19 18:00 Foot - Right Heel Wound Culture - Preliminary Gram Negative Franki Lactose Fermenting Neg Bacilli Pending Organism 01/01/19 18:00 Urine - Urine Clean Catch Urine Culture - Preliminary Non Lactose Fermenting Gnb 01/01/19 16:40 Blood - Peripheral Venous Blood Culture - Preliminary NO GROWTH OBTAINED AFTER 24 HOURS, INCUBATION TO CONTINUE FOR 4 DAYS. 01/01/19 16:40 Blood - Peripheral Venous Blood Culture - Preliminary NO GROWTH OBTAINED AFTER 24 HOURS, INCUBATION TO CONTINUE FOR 4 DAYS. Problem List - Problems (1) CKD (chronic kidney disease) Assessment/Plan: -renal on board -BUN/Cr 24.8/1.3 -monitor renal function daily Code(s): N18.9 - CHRONIC KIDNEY DISEASE, UNSPECIFIED (2) Diabetes Assessment/Plan: -[facility] ACHS -ISS -diabetic diet Code(s): E11.9 - TYPE 2 DIABETES MELLITUS WITHOUT COMPLICATIONS (3) Right foot ulcer Assessment/Plan: -ID on board -Zosyn -afebrile -WBC 10.5 -wound culture positive -Podiatry on board -daily dressing changes -foot xray shows bunion formation by first MTP joint, angulated toes with arthritic changes, calcaneal spurring and soft tissue swelling, three phase bone scan MRI to R/O osteomyelitis Code(s): L97.519 - NON-PRS CHRONIC ULCER OTH PRT RIGHT FOOT W UNSP SEVERITY (4) Venous stasis dermatitis of both lower extremities Assessment/Plan: -Vascular consult Code(s): I87.2 - VENOUS INSUFFICIENCY (CHRONIC) (PERIPHERAL) (5) DVT (deep venous thrombosis) Assessment/Plan: -Vascular US shows nonocclusive thrombus in the left popliteal vein compatible with dvt -currently on Eliquis -Vascular consult Code(s): I82.409 - ACUTE EMBOLISM AND THOMBOS UNSP DEEP VN UNSP LOWER EXTREMITY (6) Afib Assessment/Plan: -Eliquis Code(s): I48.91 - UNSPECIFIED ATRIAL FIBRILLATION Assessment/Plan see problem list
--- NOTE | 2019-01-03 17:15 | PN ---
Progress Note (short form) - Note Progress Note: losing edema fluid lost 5 lbs daily weights on torsemide renal function actually improved Plan continue torsemide same dose daily weights f/u labs
[2019-01-03] MEDS: LATANOPROST 0.005% OPHTH SOLN 2.5ML BOTTLE OU SCH (21:12)
[2019-01-04] MEDS ORDERED: DEXTROSE 5%-WATER - 50 ML IVPB ONE ×4 (00:46→23:36)
[2019-01-04] MEDS ORDERED: PIPERACILLIN/TAZOBACTAM 3.375 GM VIAL IVPB ONE ×4 (00:46→23:36)
[2019-01-04] MEDS: PIPERACILLIN/TAZOB 3.375 GM 3.375 GM in DEXTROSE 5%-WATER - 50 ML IVPB SCH ×3 (02:10→17:55)
[2019-01-04] MEDS ORDERED: INSULIN (NOVOLOG) ASPART 100 UNITS/ML 10ML VIAL ONE (05:27)
[2019-01-04] MEDS: INSULIN SLIDING SCALE (NOVOLOG) 1 VIAL SQ SCH ×4 (06:07→21:21)
[2019-01-04 06:51] LABS: HEMATOCRIT 40.5 % (35.4-49); HEMOGLOBIN 13.5 GM/dL (11.7-16.9); MCH 27.6 pg (25.7-33.7); MCHC 33.4 g/dl (32.0-35.9); MEAN CELL VOLUME 82.9 fl (80-96); MEAN PLT VOLUME 8.4 fl (7.5-11.1); PLATELET COUNT 193 K/MM3 (134-434); RBC 4.89 M/mm3 (4.00-5.60); RDW 19.4 % (11.9-15.9); WHITE BLOOD COUNT 9.8 K/mm3 (4.0-10.0)
[2019-01-04 07:03] LABS: BLOOD UREA NITROGEN 25.4 mg/dL (7-18); CREATININE 1.4 mg/dL (0.55-1.3); POTASSIUM 4.4 mmol/L (3.5-5.1)
[2019-01-04] MEDS ORDERED: PT OWN MED DRAWER 7, Y5N ONE ×2 (07:59→09:26)
[2019-01-04] MEDS: TAMSULOSIN HCL 0.4 MG CAP PO SCH (08:11)
--- NOTE | 2019-01-04 08:53 | PN ---
Progress Note (short form) - Note Progress Note: Patient seen in chair with legs in dependency. vss +compression bandages in place, wounds b/l feet edema wounds b/l feet Awaiting vascular eval. Betadine to wounds on feet. Abx as per ID. Will follow. Fluid control as per medicine.
[2019-01-04] MEDS: GABAPENTIN 300 MG CAPSULE (FP) PO SCH (09:20)
[2019-01-04] MEDS: APIXABAN 5 MG TABLET PO SCH ×2 (09:21→21:21)
[2019-01-04] MEDS: ESCITALOPRAM OXALATE 10 MG TABLET (FP) PO SCH (09:21)
[2019-01-04] MEDS: TORSEMIDE 10 MG TABLET PO SCH (09:22)
[2019-01-04] MEDS: DUTASTERIDE 0.5 MG CAP (FP) PO SCH (09:27)
[2019-01-04] MEDS: METOPROLOL TARTRATE 25 MG TABLET (FP) PO SCH (09:31)
--- NOTE | 2019-01-04 10:15 | PN ---
Progress Note, Physician History of Present Illness: stable no new issues - Current Medication List Current Medications: Active Medications Acetaminophen (Tylenol -) 325 mg PO Q4H PRN PRN Reason: PAIN 6-10 Stop: 01/04/19 21:55 Last Admin: 01/02/19 09:02 Dose: 325 mg Apixaban (Eliquis -) 5 mg PO BID [facility] Last Admin: 01/04/19 09:21 Dose: 5 mg Bupropion HCl (Wellbutrin Xl -) 150 mg PO DAILY [facility] Last Admin: 01/04/19 09:21 Dose: 150 mg Dutasteride (Avodart -) 0.5 mg PO DAILY [facility] Last Admin: 01/04/19 09:27 Dose: 0.5 mg Escitalopram Oxalate (Lexapro -) 10 mg PO DAILY [facility] Last Admin: 01/04/19 09:21 Dose: 10 mg Gabapentin (Neurontin -) 300 mg PO DAILY [facility] Last Admin: 01/04/19 09:20 Dose: 300 mg Piperacillin Sod/Tazobactam (Sod 3.375 gm/ Dextrose) 50 mls @ 100 mls/hr IVPB Q8H-IV [facility]; Protocol Last Admin: 01/04/19 09:20 Dose: 100 mls/hr Insulin Aspart (Novolog Vial Sliding Scale -) 1 vial SQ ACHS [facility]; Protocol Last Admin: 01/04/19 06:07 Dose: 2 units Latanoprost (Xalatan 0.005% Eye Drops -) 1 drop OU HS [facility] Last Admin: 01/03/19 21:12 Dose: 1 drop Metoprolol Tartrate (Lopressor -) 25 mg PO DAILY [facility] Last Admin: 01/04/19 09:31 Dose: 25 mg Oxycodone HCl (Roxicodone -) 5 mg PO Q4H PRN PRN Reason: PAIN 6-10 Last Admin: 01/02/19 09:00 Dose: 5 mg Tamsulosin HCl (Flomax -) 0.4 mg PO DAILY@0830 [facility] Last Admin: 01/04/19 08:11 Dose: 0.4 mg Torsemide (Demadex -) 10 mg PO DAILY [facility] Last Admin: 01/04/19 09:22 Dose: 10 mg - Objective Vital Signs: Vital Signs Temperature 97.6 F 01/04/19 06:10 Pulse Rate 81 01/04/19 06:10 Respiratory Rate 20 01/04/19 06:10 Blood Pressure 136/75 01/04/19 06:10 O2 Sat by Pulse Oximetry (%) 95 01/03/19 21:00 Constitutional: Yes: No Distress, Calm, Obese Cardiovascular: Yes: S1, S2 Respiratory: Yes: Regular, CTA Bilaterally Gastrointestinal: Yes: Normal Bowel Sounds, Soft Extremities: Yes: Other Edema: LLE: 2+, RLE: 2+ Wound/Incision: Yes: Dressing Dry and Intact Neurological: Yes: Alert, Oriented Psychiatric: Yes: Alert, Oriented Labs: CBC, BMP 01/04/19 05:35 01/04/19 05:35 Assessment/Plan ASSESSMENT/PLAN: #73yo man with b/l foot cellulitis w- foul smelling erythematous feet b/l, discharge+ . #ANNETTE- may be from infection, prerenal azotemia #HTN #DM A fib- plan abx await final organism await cx report continue wound care
--- NOTE | 2019-01-04 14:19 | PN ---
Progress Note, Physician Chief Complaint: B/L foot cellulitis DM Afib History of Present Illness: Previous notes and events reviewed awake and alert NAD ambulating with walker B/L lower extremity edema wound culture positive Vascular US shows nonocclusive thrombus in the left popliteal vein compatible with dvt - Current Medication List Current Medications: Active Medications Acetaminophen (Tylenol -) 325 mg PO Q4H PRN PRN Reason: PAIN 6-10 Stop: 01/04/19 21:55 Last Admin: 01/02/19 09:02 Dose: 325 mg Apixaban (Eliquis -) 5 mg PO BID [facility] Last Admin: 01/04/19 09:21 Dose: 5 mg Bupropion HCl (Wellbutrin Xl -) 150 mg PO DAILY [facility] Last Admin: 01/04/19 09:21 Dose: 150 mg Dutasteride (Avodart -) 0.5 mg PO DAILY [facility] Last Admin: 01/04/19 09:27 Dose: 0.5 mg Escitalopram Oxalate (Lexapro -) 10 mg PO DAILY [facility] Last Admin: 01/04/19 09:21 Dose: 10 mg Gabapentin (Neurontin -) 300 mg PO DAILY [facility] Last Admin: 01/04/19 09:20 Dose: 300 mg Piperacillin Sod/Tazobactam (Sod 3.375 gm/ Dextrose) 50 mls @ 100 mls/hr IVPB Q8H-IV [facility]; Protocol Last Admin: 01/04/19 09:20 Dose: 100 mls/hr Insulin Aspart (Novolog Vial Sliding Scale -) 1 vial SQ ACHS [facility]; Protocol Last Admin: 01/04/19 11:22 Dose: 2 units Latanoprost (Xalatan 0.005% Eye Drops -) 1 drop OU HS [facility] Last Admin: 01/03/19 21:12 Dose: 1 drop Metoprolol Tartrate (Lopressor -) 25 mg PO DAILY [facility] Last Admin: 01/04/19 09:31 Dose: 25 mg Oxycodone HCl (Roxicodone -) 5 mg PO Q4H PRN PRN Reason: PAIN 6-10 Last Admin: 01/02/19 09:00 Dose: 5 mg Tamsulosin HCl (Flomax -) 0.4 mg PO DAILY@0830 [facility] Last Admin: 01/04/19 08:11 Dose: 0.4 mg Torsemide (Demadex -) 10 mg PO DAILY [facility] Last Admin: 01/04/19 09:22 Dose: 10 mg - Objective Vital Signs: Vital Signs Temperature 97.6 F 01/04/19 06:10 Pulse Rate 81 01/04/19 06:10 Respiratory Rate 20 01/04/19 06:10 Blood Pressure 136/75 01/04/19 06:10 O2 Sat by Pulse Oximetry (%) 95 01/03/19 21:00 Constitutional: Yes: No Distress, Calm, Obese Eyes: Yes: Conjunctiva Clear HENT: Yes: Atraumatic Cardiovascular: Yes: Regular Rate and Rhythm Respiratory: Yes: Regular, Diminished Gastrointestinal: Yes: Normal Bowel Sounds, Soft, Abdomen, Obese Genitourinary: Yes: Santizo Present Musculoskeletal: Yes: Muscle Weakness Extremities: Yes: WNL Edema: Yes Integumentary: Yes: Erythema, Venous Stasis Changes Wound/Incision: Yes: Dressing Dry and Intact Neurological: Yes: Alert, Oriented Psychiatric: Yes: Alert, Oriented Labs: CBC, BMP 01/04/19 05:35 01/04/19 05:35 Problem List - Problems (1) CKD (chronic kidney disease) Assessment/Plan: -renal on board -BUN/Cr 25.4/1.4 -monitor renal function daily Code(s): N18.9 - CHRONIC KIDNEY DISEASE, UNSPECIFIED (2) Diabetes Assessment/Plan: -[facility] ACHS -ISS -diabetic diet Code(s): E11.9 - TYPE 2 DIABETES MELLITUS WITHOUT COMPLICATIONS (3) Right foot ulcer Assessment/Plan: -ID on board -Zosyn -afebrile -WBC 9.8 -wound culture positive -Podiatry on board -daily dressing changes -foot xray shows bunion formation by first MTP joint, angulated toes with arthritic changes, calcaneal spurring and soft tissue swelling, three phase bone scan MRI to R/O osteomyelitis -lower extremity MRI Code(s): L97.519 - NON-PRS CHRONIC ULCER OTH PRT RIGHT FOOT W UNSP SEVERITY (4) Venous stasis dermatitis of both lower extremities Assessment/Plan: -Vascular consult -compression bandages Code(s): I87.2 - VENOUS INSUFFICIENCY (CHRONIC) (PERIPHERAL) (5) DVT (deep venous thrombosis) Assessment/Plan: -Vascular US shows nonocclusive thrombus in the left popliteal vein compatible with dvt -currently on Eliquis -Vascular consult Code(s): I82.409 - ACUTE EMBOLISM AND THOMBOS UNSP DEEP VN UNSP LOWER EXTREMITY (6) Afib Assessment/Plan: -Eliquis Code(s): I48.91 - UNSPECIFIED ATRIAL FIBRILLATION Assessment/Plan see problem list
[2019-01-04] MEDS: LATANOPROST 0.005% OPHTH SOLN 2.5ML BOTTLE OU SCH (21:26)
--- NOTE | 2019-01-04 21:26 | PN ---
Progress Note (short form) - Note Progress Note: losing edema fluid lost 5 lbs daily weights on torsemide renal function actually improved Current Medications Acetaminophen (Tylenol -) 325 mg PO Q4H PRN PRN Reason: PAIN 6-10 Stop: 01/04/19 21:55 Last Admin: 01/02/19 09:02 Dose: 325 mg Apixaban (Eliquis -) 5 mg PO BID [facility] Last Admin: 01/04/19 09:21 Dose: 5 mg Bupropion HCl (Wellbutrin Xl -) 150 mg PO DAILY [facility] Last Admin: 01/04/19 09:21 Dose: 150 mg Dutasteride (Avodart -) 0.5 mg PO DAILY [facility] Last Admin: 01/04/19 09:27 Dose: 0.5 mg Escitalopram Oxalate (Lexapro -) 10 mg PO DAILY [facility] Last Admin: 01/04/19 09:21 Dose: 10 mg Gabapentin (Neurontin -) 300 mg PO DAILY [facility] Last Admin: 01/04/19 09:20 Dose: 300 mg Piperacillin Sod/Tazobactam (Sod 3.375 gm/ Dextrose) 50 mls @ 100 mls/hr IVPB Q8H-IV [facility]; Protocol Last Admin: 01/04/19 17:55 Dose: 100 mls/hr Insulin Aspart (Novolog Vial Sliding Scale -) 1 vial SQ ACHS [facility]; Protocol Last Admin: 01/04/19 17:54 Dose: 2 units Latanoprost (Xalatan 0.005% Eye Drops -) 1 drop OU HS [facility] Last Admin: 01/03/19 21:12 Dose: 1 drop Metoprolol Tartrate (Lopressor -) 25 mg PO DAILY [facility] Last Admin: 01/04/19 09:31 Dose: 25 mg Oxycodone HCl (Roxicodone -) 5 mg PO Q4H PRN PRN Reason: PAIN 6-10 Last Admin: 01/02/19 09:00 Dose: 5 mg Tamsulosin HCl (Flomax -) 0.4 mg PO DAILY@0830 [facility] Last Admin: 01/04/19 08:11 Dose: 0.4 mg Torsemide (Demadex -) 10 mg PO DAILY [facility] Last Admin: 01/04/19 09:22 Dose: 10 mg Last Vital Signs Temp Pulse Resp BP Pulse Ox 97.8 F 84 18 134/76 95 01/04/19 14:00 01/04/19 14:00 01/04/19 14:00 01/04/19 14:00 01/03/19 21:00 lungs clear heart reg abd soft ext edema CBC, BMP 01/04/19 05:35 01/04/19 05:35 IMP- CKD Anasarca lower ext edema Plan continue torsemide same dose daily weights f/u labs
[2019-01-05] MEDS: PIPERACILLIN/TAZOB 3.375 GM 3.375 GM in DEXTROSE 5%-WATER - 50 ML IVPB SCH ×3 (01:27→18:19)
[2019-01-05] MEDS: INSULIN SLIDING SCALE (NOVOLOG) 1 VIAL SQ SCH ×4 (06:10→21:39)
[2019-01-05 08:04] LABS: BILIRUBIN,TOTAL 1.3 mg/dL (0.2-1); BLOOD UREA NITROGEN 27.4 mg/dL (7-18); CREATININE 1.6 mg/dL (0.55-1.3); POTASSIUM 4.3 mmol/L (3.5-5.1); TOT PROT 6.6 g/dl (6.4-8.2)
--- NOTE | 2019-01-05 08:36 | PN ---
Progress Note, Physician Chief Complaint: AWAKE ALERT EVENTS REVIEWED NAD - Current Medication List Current Medications: Active Medications Apixaban (Eliquis -) 5 mg PO BID [facility] Last Admin: 01/04/19 21:21 Dose: 5 mg Bupropion HCl (Wellbutrin Xl -) 150 mg PO DAILY [facility] Last Admin: 01/04/19 09:21 Dose: 150 mg Dutasteride (Avodart -) 0.5 mg PO DAILY [facility] Last Admin: 01/04/19 09:27 Dose: 0.5 mg Escitalopram Oxalate (Lexapro -) 10 mg PO DAILY [facility] Last Admin: 01/04/19 09:21 Dose: 10 mg Gabapentin (Neurontin -) 300 mg PO DAILY [facility] Last Admin: 01/04/19 09:20 Dose: 300 mg Piperacillin Sod/Tazobactam (Sod 3.375 gm/ Dextrose) 50 mls @ 100 mls/hr IVPB Q8H-IV [facility]; Protocol Last Admin: 01/05/19 01:27 Dose: 100 mls/hr Insulin Aspart (Novolog Vial Sliding Scale -) 1 vial SQ ACHS [facility]; Protocol Last Admin: 01/05/19 06:10 Dose: Not Given Latanoprost (Xalatan 0.005% Eye Drops -) 1 drop OU HS [facility] Last Admin: 01/04/19 21:26 Dose: 1 drop Metoprolol Tartrate (Lopressor -) 25 mg PO DAILY [facility] Last Admin: 01/04/19 09:31 Dose: 25 mg Oxycodone HCl (Roxicodone -) 5 mg PO Q4H PRN PRN Reason: PAIN 6-10 Last Admin: 01/02/19 09:00 Dose: 5 mg Tamsulosin HCl (Flomax -) 0.4 mg PO DAILY@0830 [facility] Last Admin: 01/04/19 08:11 Dose: 0.4 mg Torsemide (Demadex -) 10 mg PO DAILY [facility] Last Admin: 01/04/19 09:22 Dose: 10 mg - Objective Vital Signs: Vital Signs Temperature 97.5 F L 01/05/19 02:51 Pulse Rate 83 01/05/19 02:51 Respiratory Rate 18 01/05/19 02:51 Blood Pressure 114/76 01/05/19 02:51 O2 Sat by Pulse Oximetry (%) 98 01/04/19 21:00 Constitutional: Yes: No Distress Eyes: Yes: WNL HENT: Yes: WNL Neck: Yes: WNL Cardiovascular: Yes: Regular Rate and Rhythm Respiratory: Yes: CTA Bilaterally Gastrointestinal: Yes: Soft, Abdomen, Obese Genitourinary: Yes: Yousif Present Musculoskeletal: Yes: Muscle Weakness Extremities: Yes: Deformity, Erythema Edema: Yes Integumentary: Yes: Pressure Ulcer, Rash, Skin Tear, Venous Stasis Changes Wound/Incision: Yes: Dressing Dry and Intact, Excoriated, Unapproximated (LOWER EXTREMITY CELLULITIS WITH EXCORIATED SKIN, SKIN ULCER TO BUTTOCK) Neurological: Yes: Pre-Existing Deficit ...Motor Strength: LLE, RLE Psychiatric: Yes: Other Labs: CBC, BMP 01/04/19 05:35 01/05/19 06:25 Problem List - Problems (1) Diabetes Code(s): E11.9 - TYPE 2 DIABETES MELLITUS WITHOUT COMPLICATIONS (2) Diabetes 1.5, managed as type 2 Code(s): E13.9 - OTHER SPECIFIED DIABETES MELLITUS WITHOUT COMPLICATIONS (3) CKD (chronic kidney disease) Code(s): N18.9 - CHRONIC KIDNEY DISEASE, UNSPECIFIED (4) Leg wound, right Code(s): S81.801A - UNSPECIFIED OPEN WOUND, RIGHT LOWER LEG, INITIAL ENCOUNTER (5) Right foot ulcer Code(s): L97.519 - NON-PRS CHRONIC ULCER OTH PRT RIGHT FOOT W UNSP SEVERITY (6) Venous stasis dermatitis of both lower extremities Code(s): I87.2 - VENOUS INSUFFICIENCY (CHRONIC) (PERIPHERAL) (7) Decubitus skin ulcer Code(s): L89.90 - PRESSURE ULCER OF UNSPECIFIED SITE, UNSPECIFIED STAGE Assessment/Plan IMPROVE NUTRITION AND WOUND CARE FOR WOUND HEALING VASC SX/AND PODIATRY EVAL OF LEGS/LOWER EXTREMITY IV ABX PER ID DVT PROPHYLAXIS YOUSIF FOR AVOIDING INFECTION TO SKIN NEBS PRN PT EAL DURATION OF ABX? ID FOR PICC LINE? AND PLACEMENT AT SNF
[2019-01-05] MEDS: TAMSULOSIN HCL 0.4 MG CAP PO SCH (08:41)
--- NOTE | 2019-01-05 09:16 | PN ---
Progress Note, Physician History of Present Illness: patient stable no complaints - Current Medication List Current Medications: Active Medications Apixaban (Eliquis -) 5 mg PO BID [facility] Last Admin: 01/04/19 21:21 Dose: 5 mg Ascorbic Acid (Vitamin C -) 500 mg PO DAILY [facility] Bupropion HCl (Wellbutrin Xl -) 150 mg PO DAILY [facility] Last Admin: 01/04/19 09:21 Dose: 150 mg Dutasteride (Avodart -) 0.5 mg PO DAILY [facility] Last Admin: 01/04/19 09:27 Dose: 0.5 mg Escitalopram Oxalate (Lexapro -) 10 mg PO DAILY [facility] Last Admin: 01/04/19 09:21 Dose: 10 mg Gabapentin (Neurontin -) 300 mg PO DAILY [facility] Last Admin: 01/04/19 09:20 Dose: 300 mg Piperacillin Sod/Tazobactam (Sod 3.375 gm/ Dextrose) 50 mls @ 100 mls/hr IVPB Q8H-IV [facility]; Protocol Last Admin: 01/05/19 01:27 Dose: 100 mls/hr Insulin Aspart (Novolog Vial Sliding Scale -) 1 vial SQ ACHS [facility]; Protocol Last Admin: 01/05/19 06:10 Dose: Not Given Latanoprost (Xalatan 0.005% Eye Drops -) 1 drop OU HS [facility] Last Admin: 01/04/19 21:26 Dose: 1 drop Metoprolol Tartrate (Lopressor -) 25 mg PO DAILY [facility] Last Admin: 01/04/19 09:31 Dose: 25 mg Nystatin/Triamcinolone Acetonide (Mycolog Ii Cream -) 1 applic TP BID [facility] Oxycodone HCl (Roxicodone -) 5 mg PO Q4H PRN PRN Reason: PAIN 6-10 Last Admin: 01/02/19 09:00 Dose: 5 mg Tamsulosin HCl (Flomax -) 0.4 mg PO DAILY@0830 [facility] Last Admin: 01/05/19 08:41 Dose: 0.4 mg Torsemide (Demadex -) 10 mg PO DAILY [facility] Last Admin: 01/04/19 09:22 Dose: 10 mg Zinc Sulfate (Orazinc -) 220 mg PO DAILY [facility] - Objective Vital Signs: Vital Signs Temperature 97.5 F L 01/05/19 02:51 Pulse Rate 83 01/05/19 02:51 Respiratory Rate 18 01/05/19 02:51 Blood Pressure 114/76 01/05/19 02:51 O2 Sat by Pulse Oximetry (%) 98 01/04/19 21:00 Constitutional: Yes: No Distress, Calm Cardiovascular: Yes: S1, S2 Respiratory: Yes: Regular, CTA Bilaterally Gastrointestinal: Yes: Normal Bowel Sounds, Soft Musculoskeletal: Yes: WNL Extremities: Yes: Other Wound/Incision: Yes: Dressing Dry and Intact Neurological: Yes: Alert, Oriented Labs: CBC, BMP 01/04/19 05:35 01/05/19 06:25 Assessment/Plan ASSESSMENT/PLAN: #73yo man with b/l foot cellulitis w- foul smelling erythematous feet b/l, discharge+ . #ANNETTE- may be from infection, prerenal azotemia #HTN #DM A fib- plan mrsa will add vanco still waiting for imaging studies to make final decisions rest as per the team
[2019-01-05] MEDS ORDERED: DEXTROSE 5%-WATER - 50 ML IVPB ONE ×2 (09:25→17:23)
[2019-01-05] MEDS ORDERED: PIPERACILLIN/TAZOBACTAM 3.375 GM VIAL IVPB ONE ×2 (09:25→17:22)
[2019-01-05] MEDS: APIXABAN 5 MG TABLET PO SCH ×2 (10:07→21:38)
[2019-01-05] MEDS: ESCITALOPRAM OXALATE 10 MG TABLET (FP) PO SCH (10:07)
[2019-01-05] MEDS: METOPROLOL TARTRATE 25 MG TABLET (FP) PO SCH (10:07)
[2019-01-05] MEDS: ZINC SULFATE 220 MG CAPSULE (FP) PO SCH (10:07)
[2019-01-05] MEDS: ASCORBIC ACID 500 MG TABLET (FP) PO SCH (10:07)
[2019-01-05] MEDS: GABAPENTIN 300 MG CAPSULE (FP) PO SCH (10:07)
[2019-01-05] MEDS: TORSEMIDE 10 MG TABLET PO SCH (10:08)
[2019-01-05] MEDS: DUTASTERIDE 0.5 MG CAP (FP) PO SCH (10:08)
[2019-01-05] MEDS: NYSTATIN/TRIAMCINOLONE TOPICAL CREAM 15 GM TUBE TP SCH ×2 (10:40→21:38)
[2019-01-05] MEDS: MULTIVIT-MINERALS ORAL LIQUID PO SCH (10:40)
--- NOTE | 2019-01-05 11:47 | PN ---
Progress Note (short form) - Note Progress Note: Patient seen coming back from mri. Was not able to get due to size of patient. vss +compression bandages in place, wounds b/l feet edema wounds b/l feet Read and appreciated vascular note. Betadine to wounds on feet. Abx as per ID. Will follow. Fluid control as per medicine.
[2019-01-05] MEDS: VANCOMYCIN HCL 1,250 MG in DEXTROSE 5%-WATER - 250 ML IVPB SCH (12:06)
--- NOTE | 2019-01-05 14:18 | PN ---
Progress Note (short form) - Note Progress Note: Vascular surgery Pt seen and examined. DRessings changed. BL wounds on forefoot. Pt came back from MRI but did not fit in machine. Start santyl to foot. Cx's are showing MRSA. Wondering if pt needs PICC line for rn long term care antibotics. Pt recently had vein [place] in [place]. Derick Soliman DO
--- NOTE | 2019-01-05 16:24 | PN ---
Progress Note, Physician History of Present Illness: Pt seen and examined at bedside. He is awake and alert. He denies shortness of breath. - Current Medication List Current Medications: Active Medications Apixaban (Eliquis -) 5 mg PO BID [facility] Last Admin: 01/05/19 10:07 Dose: 5 mg Ascorbic Acid (Vitamin C -) 500 mg PO DAILY [facility] Last Admin: 01/05/19 10:07 Dose: 500 mg Bupropion HCl (Wellbutrin Xl -) 150 mg PO DAILY [facility] Last Admin: 01/05/19 10:07 Dose: 150 mg Dutasteride (Avodart -) 0.5 mg PO DAILY [facility] Last Admin: 01/05/19 10:08 Dose: 0.5 mg Escitalopram Oxalate (Lexapro -) 10 mg PO DAILY [facility] Last Admin: 01/05/19 10:07 Dose: 10 mg Gabapentin (Neurontin -) 300 mg PO DAILY [facility] Last Admin: 01/05/19 10:07 Dose: 300 mg Piperacillin Sod/Tazobactam (Sod 3.375 gm/ Dextrose) 50 mls @ 100 mls/hr IVPB Q8H-IV [facility]; Protocol Last Admin: 01/05/19 10:40 Dose: 100 mls/hr Vancomycin HCl 1,250 mg/ (Dextrose) 250 mls @ 250 mls/2 hr IVPB DAILY [facility]; Protocol Last Admin: 01/05/19 12:06 Dose: 250 mls/2 hr Insulin Aspart (Novolog Vial Sliding Scale -) 1 vial SQ ACHS [facility]; Protocol Last Admin: 01/05/19 12:06 Dose: 4 units Latanoprost (Xalatan 0.005% Eye Drops -) 1 drop OU HS [facility] Last Admin: 01/04/19 21:26 Dose: 1 drop Metoprolol Tartrate (Lopressor -) 25 mg PO DAILY [facility] Last Admin: 01/05/19 10:07 Dose: 25 mg Nystatin/Triamcinolone Acetonide (Mycolog Ii Cream -) 1 applic TP BID [facility] Last Admin: 01/05/19 10:40 Dose: 1 applic Oxycodone HCl (Roxicodone -) 5 mg PO Q4H PRN PRN Reason: PAIN 6-10 Last Admin: 01/02/19 09:00 Dose: 5 mg Tamsulosin HCl (Flomax -) 0.4 mg PO DAILY@0830 [facility] Last Admin: 01/05/19 08:41 Dose: 0.4 mg Torsemide (Demadex -) 10 mg PO DAILY [facility] Last Admin: 01/05/19 10:08 Dose: 10 mg Zinc Sulfate (Orazinc -) 220 mg PO DAILY [facility] Last Admin: 01/05/19 10:07 Dose: 220 mg - Objective Vital Signs: Vital Signs Temperature 97.9 F 01/05/19 15:50 Pulse Rate 74 01/05/19 15:50 Respiratory Rate 18 01/05/19 15:50 Blood Pressure 116/77 01/05/19 15:50 O2 Sat by Pulse Oximetry (%) 98 01/05/19 09:00 Constitutional: Yes: Calm Eyes: Yes: Conjunctiva Clear HENT: Yes: Atraumatic Neck: Yes: Supple Cardiovascular: Yes: S1, S2 Respiratory: Yes: CTA Bilaterally Gastrointestinal: Yes: Normal Bowel Sounds, Soft, Abdomen, Obese Genitourinary: Yes: Santizo Present Musculoskeletal: Yes: Muscle Weakness Edema: Yes Edema: LLE: 3+, RLE: 3+ Integumentary: Yes: Erythema, Venous Stasis Changes Neurological: Yes: Oriented Labs: CBC, BMP 01/04/19 05:35 01/05/19 06:25 Problem List - Problems (1) CKD (chronic kidney disease) Code(s): N18.9 - CHRONIC KIDNEY DISEASE, UNSPECIFIED (2) Leg wound, right Code(s): S81.801A - UNSPECIFIED OPEN WOUND, RIGHT LOWER LEG, INITIAL ENCOUNTER (3) Venous stasis dermatitis of both lower extremities Code(s): I87.2 - VENOUS INSUFFICIENCY (CHRONIC) (PERIPHERAL) Assessment/Plan Current Medications Generic Name Dose Route Start Last Admin Trade Name Mananq PRN Reason Stop Dose Admin Apixaban 5 mg 01/02/19 10:00 01/05/19 10:07 Eliquis - PO 5 mg BID [facility] Administration Ascorbic Acid 500 mg 01/05/19 10:00 01/05/19 10:07 Vitamin C - PO 500 mg DAILY [facility] Administration Bupropion HCl 150 mg 01/02/19 10:00 01/05/19 10:07 Wellbutrin Xl - PO 150 mg DAILY [facility] Administration Dutasteride 0.5 mg 01/02/19 10:00 01/05/19 10:08 Avodart - PO 0.5 mg DAILY [facility] Administration Escitalopram Oxalate 10 mg 01/02/19 10:00 01/05/19 10:07 Lexapro - PO 10 mg DAILY [facility] Administration Gabapentin 300 mg 01/02/19 10:00 01/05/19 10:07 Neurontin - PO 300 mg DAILY [facility] Administration Piperacillin Sod/Tazobactam 50 mls @ 100 mls/hr 01/02/19 10:30 01/05/19 10:40 Sod 3.375 gm/ Dextrose IVPB 100 mls/hr Q8H-IV [facility] Administration Protocol Vancomycin HCl 1,250 mg/ 250 mls @ 250 mls/2 hr 01/05/19 10:00 01/05/19 12:06 Dextrose IVPB 250 mls/2 hr DAILY [facility] Administration Protocol Insulin Aspart 1 vial 01/01/19 22:00 01/05/19 12:06 Novolog Vial Sliding Scale - SQ 4 units ACHS [facility] Administration Protocol Latanoprost 1 drop 01/01/19 22:00 01/04/19 21:26 Xalatan 0.005% Eye Drops - OU 1 drop HS [facility] Administration Metoprolol Tartrate 25 mg 01/02/19 10:27 01/05/19 10:07 Lopressor - PO 25 mg DAILY [facility] Administration Nystatin/Triamcinolone Acetonide 1 applic 01/05/19 10:00 01/05/19 10:40 Mycolog Ii Cream - TP 1 applic BID [facility] Administration Oxycodone HCl 5 mg 01/01/19 21:56 01/02/19 09:00 Roxicodone - PO 5 mg Q4H PRN Administration PAIN 6-10 Tamsulosin HCl 0.4 mg 01/02/19 08:30 01/05/19 08:41 Flomax - PO 0.4 mg DAILY@0830 [facility] Administration Torsemide 10 mg 01/02/19 13:19 01/05/19 10:08 Demadex - PO 10 mg DAILY [facility] Administration Zinc Sulfate 220 mg 01/05/19 10:00 01/05/19 10:07 Orazinc - PO 220 mg DAILY [facility] Administration Impression 1. CKD vs ANNETTE with unclear baseline 2. DM 3. DFU 4. HTN 5. obesity 6. suprapubic cath Plan - cont torsemide, will need to clarify home dose - pt going for bone scan to r/o osteo - elevated legs - cont torsemide - monitor renal function - monitor volume status - follow cultures Dr Gongora
[2019-01-05] MEDS: LATANOPROST 0.005% OPHTH SOLN 2.5ML BOTTLE OU SCH (21:39)
[2019-01-06] MEDS ORDERED: DEXTROSE 5%-WATER - 50 ML IVPB ONE ×3 (01:03→16:45)
[2019-01-06] MEDS ORDERED: PIPERACILLIN/TAZOBACTAM 3.375 GM VIAL IVPB ONE ×3 (01:03→16:45)
[2019-01-06] MEDS: PIPERACILLIN/TAZOB 3.375 GM 3.375 GM in DEXTROSE 5%-WATER - 50 ML IVPB SCH ×3 (01:35→17:24)
[2019-01-06] MEDS: INSULIN SLIDING SCALE (NOVOLOG) 1 VIAL SQ SCH ×4 (06:59→22:19)
[2019-01-06] MEDS: TAMSULOSIN HCL 0.4 MG CAP PO SCH (08:26)
--- NOTE | 2019-01-06 08:49 | PN ---
Progress Note, Physician Chief Complaint: AWAITING BONE SCAN R/O OSTEOMYELITIS COMFORTABLE - Current Medication List Current Medications: Active Medications Apixaban (Eliquis -) 5 mg PO BID [facility] Last Admin: 01/05/19 21:38 Dose: 5 mg Ascorbic Acid (Vitamin C -) 500 mg PO DAILY [facility] Last Admin: 01/05/19 10:07 Dose: 500 mg Bupropion HCl (Wellbutrin Xl -) 150 mg PO DAILY [facility] Last Admin: 01/05/19 10:07 Dose: 150 mg Dutasteride (Avodart -) 0.5 mg PO DAILY [facility] Last Admin: 01/05/19 10:08 Dose: 0.5 mg Escitalopram Oxalate (Lexapro -) 10 mg PO DAILY [facility] Last Admin: 01/05/19 10:07 Dose: 10 mg Gabapentin (Neurontin -) 300 mg PO DAILY [facility] Last Admin: 01/05/19 10:07 Dose: 300 mg Piperacillin Sod/Tazobactam (Sod 3.375 gm/ Dextrose) 50 mls @ 100 mls/hr IVPB Q8H-IV [facility]; Protocol Last Admin: 01/06/19 01:35 Dose: 100 mls/hr Vancomycin HCl 1,250 mg/ (Dextrose) 250 mls @ 250 mls/2 hr IVPB DAILY [facility]; Protocol Last Admin: 01/05/19 12:06 Dose: 250 mls/2 hr Insulin Aspart (Novolog Vial Sliding Scale -) 1 vial SQ ACHS [facility]; Protocol Last Admin: 01/06/19 06:59 Dose: 2 units Latanoprost (Xalatan 0.005% Eye Drops -) 1 drop OU HS [facility] Last Admin: 01/05/19 21:39 Dose: 1 drop Metoprolol Tartrate (Lopressor -) 25 mg PO DAILY [facility] Last Admin: 01/05/19 10:07 Dose: 25 mg Nystatin/Triamcinolone Acetonide (Mycolog Ii Cream -) 1 applic TP BID [facility] Last Admin: 01/05/19 21:38 Dose: 1 applic Oxycodone HCl (Roxicodone -) 5 mg PO Q4H PRN PRN Reason: PAIN 6-10 Last Admin: 01/02/19 09:00 Dose: 5 mg Tamsulosin HCl (Flomax -) 0.4 mg PO DAILY@0830 [facility] Last Admin: 01/06/19 08:26 Dose: 0.4 mg Torsemide (Demadex -) 10 mg PO DAILY [facility] Last Admin: 01/05/19 10:08 Dose: 10 mg Zinc Sulfate (Orazinc -) 220 mg PO DAILY [facility] Last Admin: 01/05/19 10:07 Dose: 220 mg - Objective Vital Signs: Vital Signs Temperature 97.5 F L 01/06/19 06:00 Pulse Rate 86 01/06/19 06:00 Respiratory Rate 20 01/06/19 06:00 Blood Pressure 110/63 01/06/19 06:00 O2 Sat by Pulse Oximetry (%) 100 01/05/19 21:00 Constitutional: Yes: No Distress Eyes: Yes: WNL HENT: Yes: WNL Neck: Yes: WNL Cardiovascular: Yes: Regular Rate and Rhythm Respiratory: Yes: WNL Gastrointestinal: Yes: Abdomen, Obese Genitourinary: Yes: Yousif Present Musculoskeletal: Yes: Muscle Weakness Extremities: Yes: Erythema Edema: Yes Integumentary: Yes: Pressure Ulcer, Rash, Venous Stasis Changes Wound/Incision: Yes: Dressing Dry and Intact, Reddened, Excoriated Neurological: Yes: Pre-Existing Deficit ...Motor Strength: LLE, RLE Psychiatric: Yes: Other Labs: CBC, BMP 01/04/19 05:35 01/05/19 06:25 Problem List - Problems (1) Diabetes Code(s): E11.9 - TYPE 2 DIABETES MELLITUS WITHOUT COMPLICATIONS (2) Diabetes 1.5, managed as type 2 Code(s): E13.9 - OTHER SPECIFIED DIABETES MELLITUS WITHOUT COMPLICATIONS (3) CKD (chronic kidney disease) Code(s): N18.9 - CHRONIC KIDNEY DISEASE, UNSPECIFIED (4) Leg wound, right Code(s): S81.801A - UNSPECIFIED OPEN WOUND, RIGHT LOWER LEG, INITIAL ENCOUNTER (5) Right foot ulcer Code(s): L97.519 - NON-PRS CHRONIC ULCER OTH PRT RIGHT FOOT W UNSP SEVERITY (6) Venous stasis dermatitis of both lower extremities Code(s): I87.2 - VENOUS INSUFFICIENCY (CHRONIC) (PERIPHERAL) (7) Decubitus skin ulcer Code(s): L89.90 - PRESSURE ULCER OF UNSPECIFIED SITE, UNSPECIFIED STAGE Assessment/Plan BONE SCAN PENDING IMPROVE NUTRITION AND WOUND CARE FOR WOUND HEALING VASC SX/AND PODIATRY EVAL OF LEGS/LOWER EXTREMITY IV ABX PER ID DVT PROPHYLAXIS YOUSIF FOR AVOIDING INFECTION TO SKIN NEBS PRN PT EAL DURATION OF ABX? ID FOR PICC LINE? AND PLACEMENT AT SNF
[2019-01-06] MEDS: DUTASTERIDE 0.5 MG CAP (FP) PO SCH (10:24)
[2019-01-06] MEDS: VANCOMYCIN HCL 1,250 MG in DEXTROSE 5%-WATER - 250 ML IVPB SCH (10:24)
[2019-01-06] MEDS: GABAPENTIN 300 MG CAPSULE (FP) PO SCH (10:24)
[2019-01-06] MEDS: ZINC SULFATE 220 MG CAPSULE (FP) PO SCH (10:24)
[2019-01-06] MEDS: ASCORBIC ACID 500 MG TABLET (FP) PO SCH (10:25)
[2019-01-06] MEDS: ESCITALOPRAM OXALATE 10 MG TABLET (FP) PO SCH (10:25)
[2019-01-06] MEDS: METOPROLOL TARTRATE 25 MG TABLET (FP) PO SCH (10:25)
[2019-01-06] MEDS: APIXABAN 5 MG TABLET PO SCH ×2 (10:25→22:20)
[2019-01-06] MEDS: TORSEMIDE 10 MG TABLET PO SCH (10:25)
[2019-01-06] MEDS: MULTIVIT-MINERALS ORAL LIQUID PO SCH (10:25)
[2019-01-06] MEDS: NYSTATIN/TRIAMCINOLONE TOPICAL CREAM 15 GM TUBE TP SCH ×2 (10:25→22:21)
--- NOTE | 2019-01-06 13:15 | PN ---
Progress Note, Physician History of Present Illness: no new issues - Current Medication List Current Medications: Active Medications Apixaban (Eliquis -) 5 mg PO BID [facility] Last Admin: 01/06/19 10:25 Dose: 5 mg Ascorbic Acid (Vitamin C -) 500 mg PO DAILY [facility] Last Admin: 01/06/19 10:25 Dose: 500 mg Bupropion HCl (Wellbutrin Xl -) 150 mg PO DAILY [facility] Last Admin: 01/06/19 10:25 Dose: 150 mg Dutasteride (Avodart -) 0.5 mg PO DAILY [facility] Last Admin: 01/06/19 10:24 Dose: 0.5 mg Escitalopram Oxalate (Lexapro -) 10 mg PO DAILY [facility] Last Admin: 01/06/19 10:25 Dose: 10 mg Gabapentin (Neurontin -) 300 mg PO DAILY [facility] Last Admin: 01/06/19 10:24 Dose: 300 mg Piperacillin Sod/Tazobactam (Sod 3.375 gm/ Dextrose) 50 mls @ 100 mls/hr IVPB Q8H-IV [facility]; Protocol Last Admin: 01/06/19 10:23 Dose: 100 mls/hr Vancomycin HCl 1,250 mg/ (Dextrose) 250 mls @ 250 mls/2 hr IVPB DAILY [facility]; Protocol Last Admin: 01/06/19 10:24 Dose: 250 mls/2 hr Insulin Aspart (Novolog Vial Sliding Scale -) 1 vial SQ ACHS [facility]; Protocol Last Admin: 01/06/19 11:22 Dose: 4 units Latanoprost (Xalatan 0.005% Eye Drops -) 1 drop OU HS [facility] Last Admin: 01/05/19 21:39 Dose: 1 drop Metoprolol Tartrate (Lopressor -) 25 mg PO DAILY [facility] Last Admin: 01/06/19 10:25 Dose: 25 mg Nystatin/Triamcinolone Acetonide (Mycolog Ii Cream -) 1 applic TP BID [facility] Last Admin: 01/06/19 10:25 Dose: 1 applic Oxycodone HCl (Roxicodone -) 5 mg PO Q4H PRN PRN Reason: PAIN 6-10 Last Admin: 01/02/19 09:00 Dose: 5 mg Tamsulosin HCl (Flomax -) 0.4 mg PO DAILY@0830 [facility] Last Admin: 01/06/19 08:26 Dose: 0.4 mg Torsemide (Demadex -) 10 mg PO DAILY [facility] Last Admin: 01/06/19 10:25 Dose: 10 mg Zinc Sulfate (Orazinc -) 220 mg PO DAILY [facility] Last Admin: 01/06/19 10:24 Dose: 220 mg - Objective Vital Signs: Vital Signs Temperature 98.8 F 01/06/19 10:00 Pulse Rate 79 01/06/19 10:00 Respiratory Rate 20 01/06/19 10:00 Blood Pressure 123/69 01/06/19 10:00 O2 Sat by Pulse Oximetry (%) 99 01/06/19 09:00 Constitutional: Yes: No Distress, Calm Eyes: Yes: Conjunctiva Clear Cardiovascular: Yes: S1, S2 Respiratory: Yes: Regular, CTA Bilaterally Gastrointestinal: Yes: Normal Bowel Sounds Musculoskeletal: Yes: WNL Extremities: Yes: Other Labs: CBC, BMP 01/04/19 05:35 01/05/19 06:25 Assessment/Plan ASSESSMENT/PLAN: #73yo man with b/l foot cellulitis w- foul smelling erythematous feet b/l, discharge+ . #ANNETTE- may be from infection, prerenal azotemia #HTN #DM A fib- plan mrsa will add vanco awaiting for report of imaging studies
[2019-01-06] MEDS ORDERED: FUROSEMIDE 40 MG/4 ML INJECTABLE VIAL IVPUSH ONE (15:04)
--- NOTE | 2019-01-06 15:04 | PN ---
Progress Note, Physician History of Present Illness: Pt seen and examined at bedside. He is awake and alert. He complains of lower ext edema. - Current Medication List Current Medications: Active Medications Apixaban (Eliquis -) 5 mg PO BID [facility] Last Admin: 01/06/19 10:25 Dose: 5 mg Ascorbic Acid (Vitamin C -) 500 mg PO DAILY [facility] Last Admin: 01/06/19 10:25 Dose: 500 mg Bupropion HCl (Wellbutrin Xl -) 150 mg PO DAILY [facility] Last Admin: 01/06/19 10:25 Dose: 150 mg Dutasteride (Avodart -) 0.5 mg PO DAILY [facility] Last Admin: 01/06/19 10:24 Dose: 0.5 mg Escitalopram Oxalate (Lexapro -) 10 mg PO DAILY [facility] Last Admin: 01/06/19 10:25 Dose: 10 mg Gabapentin (Neurontin -) 300 mg PO DAILY [facility] Last Admin: 01/06/19 10:24 Dose: 300 mg Piperacillin Sod/Tazobactam (Sod 3.375 gm/ Dextrose) 50 mls @ 100 mls/hr IVPB Q8H-IV [facility]; Protocol Last Admin: 01/06/19 10:23 Dose: 100 mls/hr Vancomycin HCl 1,250 mg/ (Dextrose) 250 mls @ 250 mls/2 hr IVPB DAILY [facility]; Protocol Last Admin: 01/06/19 10:24 Dose: 250 mls/2 hr Insulin Aspart (Novolog Vial Sliding Scale -) 1 vial SQ ACHS [facility]; Protocol Last Admin: 01/06/19 11:22 Dose: 4 units Latanoprost (Xalatan 0.005% Eye Drops -) 1 drop OU HS [facility] Last Admin: 01/05/19 21:39 Dose: 1 drop Metoprolol Tartrate (Lopressor -) 25 mg PO DAILY [facility] Last Admin: 01/06/19 10:25 Dose: 25 mg Nystatin/Triamcinolone Acetonide (Mycolog Ii Cream -) 1 applic TP BID [facility] Last Admin: 01/06/19 10:25 Dose: 1 applic Oxycodone HCl (Roxicodone -) 5 mg PO Q4H PRN PRN Reason: PAIN 6-10 Last Admin: 01/02/19 09:00 Dose: 5 mg Tamsulosin HCl (Flomax -) 0.4 mg PO DAILY@0830 [facility] Last Admin: 01/06/19 08:26 Dose: 0.4 mg Torsemide (Demadex -) 10 mg PO DAILY [facility] Last Admin: 01/06/19 10:25 Dose: 10 mg Zinc Sulfate (Orazinc -) 220 mg PO DAILY [facility] Last Admin: 01/06/19 10:24 Dose: 220 mg - Objective Vital Signs: Vital Signs Temperature 98.8 F 01/06/19 10:00 Pulse Rate 79 01/06/19 10:00 Respiratory Rate 20 01/06/19 10:00 Blood Pressure 123/69 01/06/19 10:00 O2 Sat by Pulse Oximetry (%) 99 01/06/19 09:00 Constitutional: Yes: Calm Eyes: Yes: Conjunctiva Clear HENT: Yes: Atraumatic Neck: Yes: Supple Cardiovascular: Yes: S1, S2 Respiratory: Yes: CTA Bilaterally Gastrointestinal: Yes: Normal Bowel Sounds, Soft Genitourinary: Yes: Other (suprapubic cath) Edema: Yes Edema: LLE: 3+, RLE: 3+ Neurological: Yes: Oriented Psychiatric: Yes: Oriented Labs: CBC, BMP 01/04/19 05:35 01/05/19 06:25 Problem List - Problems (1) CKD (chronic kidney disease) Code(s): N18.9 - CHRONIC KIDNEY DISEASE, UNSPECIFIED (2) Leg wound, right Code(s): S81.801A - UNSPECIFIED OPEN WOUND, RIGHT LOWER LEG, INITIAL ENCOUNTER (3) Venous stasis dermatitis of both lower extremities Code(s): I87.2 - VENOUS INSUFFICIENCY (CHRONIC) (PERIPHERAL) Assessment/Plan Current Medications Generic Name Dose Route Start Last Admin Trade Name Mananq PRN Reason Stop Dose Admin Apixaban 5 mg 01/02/19 10:00 01/06/19 10:25 Eliquis - PO 5 mg BID [facility] Administration Ascorbic Acid 500 mg 01/05/19 10:00 01/06/19 10:25 Vitamin C - PO 500 mg DAILY [facility] Administration Bupropion HCl 150 mg 01/02/19 10:00 01/06/19 10:25 Wellbutrin Xl - PO 150 mg DAILY [facility] Administration Dutasteride 0.5 mg 01/02/19 10:00 01/06/19 10:24 Avodart - PO 0.5 mg DAILY [facility] Administration Escitalopram Oxalate 10 mg 01/02/19 10:00 01/06/19 10:25 Lexapro - PO 10 mg DAILY [facility] Administration Gabapentin 300 mg 01/02/19 10:00 01/06/19 10:24 Neurontin - PO 300 mg DAILY [facility] Administration Piperacillin Sod/Tazobactam 50 mls @ 100 mls/hr 01/02/19 10:30 01/06/19 10:23 Sod 3.375 gm/ Dextrose IVPB 100 mls/hr Q8H-IV [facility] Administration Protocol Vancomycin HCl 1,250 mg/ 250 mls @ 250 mls/2 hr 01/05/19 10:00 01/06/19 10:24 Dextrose IVPB 250 mls/2 hr DAILY [facility] Administration Protocol Insulin Aspart 1 vial 01/01/19 22:00 01/06/19 11:22 Novolog Vial Sliding Scale - SQ 4 units ACHS [facility] Administration Protocol Latanoprost 1 drop 01/01/19 22:00 01/05/19 21:39 Xalatan 0.005% Eye Drops - OU 1 drop HS [facility] Administration Metoprolol Tartrate 25 mg 01/02/19 10:27 01/06/19 10:25 Lopressor - PO 25 mg DAILY [facility] Administration Nystatin/Triamcinolone Acetonide 1 applic 01/05/19 10:00 01/06/19 10:25 Mycolog Ii Cream - TP 1 applic BID [facility] Administration Oxycodone HCl 5 mg 01/01/19 21:56 01/02/19 09:00 Roxicodone - PO 5 mg Q4H PRN Administration PAIN 6-10 Tamsulosin HCl 0.4 mg 01/02/19 08:30 01/06/19 08:26 Flomax - PO 0.4 mg DAILY@0830 [facility] Administration Torsemide 10 mg 01/02/19 13:19 01/06/19 10:25 Demadex - PO 10 mg DAILY [facility] Administration Zinc Sulfate 220 mg 01/05/19 10:00 01/06/19 10:24 Orazinc - PO 220 mg DAILY [facility] Administration Impression 1. CKD vs ANNETTE with unclear baseline 2. DM 3. DFU 4. HTN 5. obesity 6. suprapubic cath Plan - will give IV lasix - monitor urine output and volume status - elevated legs - cont torsemide - monitor renal function Dr Gongora
[2019-01-06] MEDS: LATANOPROST 0.005% OPHTH SOLN 2.5ML BOTTLE OU SCH (22:26)
[2019-01-07] MEDS ORDERED: PIPERACILLIN/TAZOBACTAM 3.375 GM VIAL IVPB ONE ×3 (00:24→16:53)
[2019-01-07] MEDS ORDERED: DEXTROSE 5%-WATER - 50 ML IVPB ONE ×3 (00:25→16:53)
[2019-01-07] MEDS: PIPERACILLIN/TAZOB 3.375 GM 3.375 GM in DEXTROSE 5%-WATER - 50 ML IVPB SCH ×3 (01:24→17:13)
[2019-01-07] MEDS ORDERED: oxyCODONE HCL 5 MG TABLET PO PRN (01:41)
[2019-01-07] MEDS ORDERED: ACETAMINOPHEN 325 MG TABLET (FP) PO PRN (01:42)
[2019-01-07] MEDS: oxyCODONE HCL 5 MG TABLET PO PRN (01:59)
[2019-01-07 07:09] LABS: HEMATOCRIT 39.7 % (35.4-49); HEMOGLOBIN 13.3 GM/dL (11.7-16.9); MCH 28.1 pg (25.7-33.7); MCHC 33.5 g/dl (32.0-35.9); MEAN CELL VOLUME 83.7 fl (80-96); MEAN PLT VOLUME 8.5 fl (7.5-11.1); PLATELET COUNT 165 K/MM3 (134-434); RBC 4.74 M/mm3 (4.00-5.60); RDW 19.2 % (11.9-15.9); WHITE BLOOD COUNT 8.6 K/mm3 (4.0-10.0)
[2019-01-07 07:34] LABS: BLOOD UREA NITROGEN 27.5 mg/dL (7-18); CALCIUM 8.5 mg/dL (8.5-10.1); CREATININE 1.4 mg/dL (0.55-1.3); POTASSIUM 3.8 mmol/L (3.5-5.1)
[2019-01-07] MEDS: INSULIN SLIDING SCALE (NOVOLOG) 1 VIAL SQ SCH ×4 (07:41→21:51)
[2019-01-07] MEDS: TAMSULOSIN HCL 0.4 MG CAP PO SCH (08:00)
[2019-01-07] MEDS: VANCOMYCIN HCL 1,250 MG in DEXTROSE 5%-WATER - 250 ML IVPB SCH (09:31)
[2019-01-07] MEDS: DUTASTERIDE 0.5 MG CAP (FP) PO SCH (09:32)
[2019-01-07] MEDS: MULTIVIT-MINERALS ORAL LIQUID PO SCH (09:32)
[2019-01-07] MEDS: NYSTATIN/TRIAMCINOLONE TOPICAL CREAM 15 GM TUBE TP SCH ×2 (09:33→21:52)
[2019-01-07] MEDS: APIXABAN 5 MG TABLET PO SCH ×2 (09:33→21:52)
[2019-01-07] MEDS: ASCORBIC ACID 500 MG TABLET (FP) PO SCH (09:33)
[2019-01-07] MEDS: METOPROLOL TARTRATE 25 MG TABLET (FP) PO SCH (09:33)
[2019-01-07] MEDS: ESCITALOPRAM OXALATE 10 MG TABLET (FP) PO SCH (09:33)
[2019-01-07] MEDS: ZINC SULFATE 220 MG CAPSULE (FP) PO SCH (09:33)
[2019-01-07] MEDS: GABAPENTIN 300 MG CAPSULE (FP) PO SCH (09:33)
--- NOTE | 2019-01-07 09:37 | PN ---
Progress Note, Physician - Current Medication List Current Medications: Active Medications Acetaminophen (Tylenol -) 325 mg PO Q6H PRN PRN Reason: PAIN LEVEL 4 - 6 Last Admin: 01/07/19 02:00 Dose: 325 mg Apixaban (Eliquis -) 5 mg PO BID [facility] Last Admin: 01/07/19 09:33 Dose: 5 mg Ascorbic Acid (Vitamin C -) 500 mg PO DAILY [facility] Last Admin: 01/07/19 09:33 Dose: 500 mg Bupropion HCl (Wellbutrin Xl -) 150 mg PO DAILY [facility] Last Admin: 01/07/19 09:33 Dose: 150 mg Collagenase (Santyl -) 1 applic TP DAILY [facility]; Protocol Dutasteride (Avodart -) 0.5 mg PO DAILY [facility] Last Admin: 01/07/19 09:32 Dose: 0.5 mg Escitalopram Oxalate (Lexapro -) 10 mg PO DAILY [facility] Last Admin: 01/07/19 09:33 Dose: 10 mg Gabapentin (Neurontin -) 300 mg PO DAILY [facility] Last Admin: 01/07/19 09:33 Dose: 300 mg Piperacillin Sod/Tazobactam (Sod 3.375 gm/ Dextrose) 50 mls @ 100 mls/hr IVPB Q8H-IV [facility]; Protocol Last Admin: 01/07/19 09:32 Dose: 100 mls/hr Vancomycin HCl 1,250 mg/ (Dextrose) 250 mls @ 250 mls/2 hr IVPB DAILY [facility]; Protocol Last Admin: 01/07/19 09:31 Dose: 250 mls/2 hr Insulin Aspart (Novolog Vial Sliding Scale -) 1 vial SQ ACHS [facility]; Protocol Last Admin: 01/07/19 07:41 Dose: 2 units Latanoprost (Xalatan 0.005% Eye Drops -) 1 drop OU HS [facility] Last Admin: 01/06/19 22:26 Dose: 1 drop Metoprolol Tartrate (Lopressor -) 25 mg PO DAILY [facility] Last Admin: 01/07/19 09:33 Dose: 25 mg Nystatin/Triamcinolone Acetonide (Mycolog Ii Cream -) 1 applic TP BID [facility] Last Admin: 01/07/19 09:33 Dose: 1 applic Oxycodone HCl (Roxicodone -) 5 mg PO Q4H PRN PRN Reason: PAIN 6-10 Last Admin: 01/07/19 01:59 Dose: 5 mg Oxycodone HCl (Roxicodone -) 5 mg PO Q6H PRN PRN Reason: PAIN LEVEL 4 - 6 Tamsulosin HCl (Flomax -) 0.4 mg PO DAILY@0830 [facility] Last Admin: 01/07/19 08:00 Dose: 0.4 mg Torsemide (Demadex -) 20 mg PO DAILY [facility] Zinc Sulfate (Orazinc -) 220 mg PO DAILY [facility] Last Admin: 01/07/19 09:33 Dose: 220 mg - Objective Vital Signs: Vital Signs Temperature 97.8 F 01/06/19 22:00 Pulse Rate 79 01/06/19 22:00 Respiratory Rate 20 01/06/19 22:00 Blood Pressure 124/75 01/06/19 22:00 O2 Sat by Pulse Oximetry (%) 96 01/06/19 21:00 Labs: CBC, BMP 01/07/19 05:59 01/07/19 05:59 Problem List - Problems (1) Diabetes Code(s): E11.9 - TYPE 2 DIABETES MELLITUS WITHOUT COMPLICATIONS (2) Diabetes 1.5, managed as type 2 Code(s): E13.9 - OTHER SPECIFIED DIABETES MELLITUS WITHOUT COMPLICATIONS (3) CKD (chronic kidney disease) Code(s): N18.9 - CHRONIC KIDNEY DISEASE, UNSPECIFIED (4) Leg wound, right Code(s): S81.801A - UNSPECIFIED OPEN WOUND, RIGHT LOWER LEG, INITIAL ENCOUNTER (5) Right foot ulcer Code(s): L97.519 - NON-PRS CHRONIC ULCER OTH PRT RIGHT FOOT W UNSP SEVERITY (6) Venous stasis dermatitis of both lower extremities Code(s): I87.2 - VENOUS INSUFFICIENCY (CHRONIC) (PERIPHERAL) (7) Decubitus skin ulcer Code(s): L89.90 - PRESSURE ULCER OF UNSPECIFIED SITE, UNSPECIFIED STAGE
[2019-01-07] MEDS ORDERED: TORSEMIDE 10 MG TABLET PO SCH (10:00)
[2019-01-07] MEDS ORDERED: PT OWN MED DRAWER 7, Y5N ONE (11:08)
[2019-01-07] MEDS: COLLAGENASE CLOSTRIDIUM HIST. 30 GRAMS TUBE TP SCH (11:10)
[2019-01-07 12:36] VITALS: BMI 50.1
[2019-01-07] MEDS ORDERED: TORSEMIDE 100 MG TABLET PO SCH (12:49)
[2019-01-07] MEDS ORDERED: FUROSEMIDE 40 MG/4 ML INJECTABLE VIAL IVPUSH ONE (12:49)
--- NOTE | 2019-01-07 12:49 | PN ---
Progress Note, Physician History of Present Illness: Pt seen and examined at bedside. He is awake and alert. He says he was on 100 mg of torsemide at home. - Current Medication List Current Medications: Active Medications Acetaminophen (Tylenol -) 325 mg PO Q6H PRN PRN Reason: PAIN LEVEL 4 - 6 Last Admin: 01/07/19 02:00 Dose: 325 mg Apixaban (Eliquis -) 5 mg PO BID [facility] Last Admin: 01/07/19 09:33 Dose: 5 mg Ascorbic Acid (Vitamin C -) 500 mg PO DAILY [facility] Last Admin: 01/07/19 09:33 Dose: 500 mg Bupropion HCl (Wellbutrin Xl -) 150 mg PO DAILY [facility] Last Admin: 01/07/19 09:33 Dose: 150 mg Collagenase (Santyl -) 1 applic TP DAILY [facility]; Protocol Last Admin: 01/07/19 11:10 Dose: 1 applic Dutasteride (Avodart -) 0.5 mg PO DAILY [facility] Last Admin: 01/07/19 09:32 Dose: 0.5 mg Escitalopram Oxalate (Lexapro -) 10 mg PO DAILY [facility] Last Admin: 01/07/19 09:33 Dose: 10 mg Gabapentin (Neurontin -) 300 mg PO DAILY [facility] Last Admin: 01/07/19 09:33 Dose: 300 mg Piperacillin Sod/Tazobactam (Sod 3.375 gm/ Dextrose) 50 mls @ 100 mls/hr IVPB Q8H-IV [facility]; Protocol Last Admin: 01/07/19 09:32 Dose: 100 mls/hr Vancomycin HCl 1,250 mg/ (Dextrose) 250 mls @ 250 mls/2 hr IVPB DAILY [facility]; Protocol Last Admin: 01/07/19 09:31 Dose: 250 mls/2 hr Insulin Aspart (Novolog Vial Sliding Scale -) 1 vial SQ ACHS [facility]; Protocol Last Admin: 01/07/19 10:57 Dose: 2 units Latanoprost (Xalatan 0.005% Eye Drops -) 1 drop OU HS [facility] Last Admin: 01/06/19 22:26 Dose: 1 drop Metoprolol Tartrate (Lopressor -) 25 mg PO DAILY [facility] Last Admin: 01/07/19 09:33 Dose: 25 mg Nystatin/Triamcinolone Acetonide (Mycolog Ii Cream -) 1 applic TP BID [facility] Last Admin: 01/07/19 09:33 Dose: 1 applic Oxycodone HCl (Roxicodone -) 5 mg PO Q4H PRN PRN Reason: PAIN 6-10 Last Admin: 01/07/19 01:59 Dose: 5 mg Oxycodone HCl (Roxicodone -) 5 mg PO Q6H PRN PRN Reason: PAIN LEVEL 4 - 6 Tamsulosin HCl (Flomax -) 0.4 mg PO DAILY@0830 [facility] Last Admin: 01/07/19 08:00 Dose: 0.4 mg Torsemide (Demadex -) 20 mg PO DAILY [facility] Last Admin: 01/07/19 11:10 Dose: 20 mg Zinc Sulfate (Orazinc -) 220 mg PO DAILY [facility] Last Admin: 01/07/19 09:33 Dose: 220 mg - Objective Vital Signs: Vital Signs Temperature 97.5 F L 01/07/19 10:00 Pulse Rate 84 01/07/19 10:00 Respiratory Rate 20 01/07/19 10:00 Blood Pressure 110/67 01/07/19 10:00 O2 Sat by Pulse Oximetry (%) 98 01/07/19 09:00 Constitutional: Yes: Calm Eyes: Yes: Conjunctiva Clear HENT: Yes: Atraumatic Neck: Yes: Supple Cardiovascular: Yes: S1, S2 Respiratory: Yes: CTA Bilaterally Gastrointestinal: Yes: Soft, Abdomen, Obese Genitourinary: Yes: Other (suprapubic cath) Edema: Yes Edema: LLE: 3+, RLE: 3+ Integumentary: Yes: Venous Stasis Changes Neurological: Yes: Oriented Psychiatric: Yes: Oriented Labs: CBC, BMP 01/07/19 05:59 01/07/19 05:59 Problem List - Problems (1) CKD (chronic kidney disease) Code(s): N18.9 - CHRONIC KIDNEY DISEASE, UNSPECIFIED (2) Leg wound, right Code(s): S81.801A - UNSPECIFIED OPEN WOUND, RIGHT LOWER LEG, INITIAL ENCOUNTER (3) Venous stasis dermatitis of both lower extremities Code(s): I87.2 - VENOUS INSUFFICIENCY (CHRONIC) (PERIPHERAL) Assessment/Plan Current Medications Generic Name Dose Route Start Last Admin Trade Name Freq PRN Reason Stop Dose Admin Acetaminophen 325 mg 01/07/19 01:42 01/07/19 02:00 Tylenol - PO 325 mg Q6H PRN Administration PAIN LEVEL 4 - 6 Apixaban 5 mg 01/02/19 10:00 01/07/19 09:33 Eliquis - PO 5 mg BID [facility] Administration Ascorbic Acid 500 mg 01/05/19 10:00 01/07/19 09:33 Vitamin C - PO 500 mg DAILY [facility] Administration Bupropion HCl 150 mg 01/02/19 10:00 01/07/19 09:33 Wellbutrin Xl - PO 150 mg DAILY [facility] Administration Collagenase 1 applic 01/07/19 10:00 01/07/19 11:10 Santyl - TP 1 applic DAILY [facility] Administration Protocol Dutasteride 0.5 mg 01/02/19 10:00 01/07/19 09:32 Avodart - PO 0.5 mg DAILY [facility] Administration Escitalopram Oxalate 10 mg 01/02/19 10:00 01/07/19 09:33 Lexapro - PO 10 mg DAILY [facility] Administration Gabapentin 300 mg 01/02/19 10:00 01/07/19 09:33 Neurontin - PO 300 mg DAILY [facility] Administration Piperacillin Sod/Tazobactam 50 mls @ 100 mls/hr 01/02/19 10:30 01/07/19 09:32 Sod 3.375 gm/ Dextrose IVPB 100 mls/hr Q8H-IV [facility] Administration Protocol Vancomycin HCl 1,250 mg/ 250 mls @ 250 mls/2 hr 01/05/19 10:00 01/07/19 09:31 Dextrose IVPB 250 mls/2 hr DAILY [facility] Administration Protocol Insulin Aspart 1 vial 01/01/19 22:00 01/07/19 10:57 Novolog Vial Sliding Scale - SQ 2 units ACHS [facility] Administration Protocol Latanoprost 1 drop 01/01/19 22:00 01/06/19 22:26 Xalatan 0.005% Eye Drops - OU 1 drop HS [facility] Administration Metoprolol Tartrate 25 mg 01/02/19 10:27 01/07/19 09:33 Lopressor - PO 25 mg DAILY [facility] Administration Nystatin/Triamcinolone Acetonide 1 applic 01/05/19 10:00 01/07/19 09:33 Mycolog Ii Cream - TP 1 applic BID [facility] Administration Oxycodone HCl 5 mg 01/01/19 21:56 01/07/19 01:59 Roxicodone - PO 5 mg Q4H PRN Administration PAIN 6-10 Oxycodone HCl 5 mg 01/07/19 01:41 Roxicodone - PO Q6H PRN PAIN LEVEL 4 - 6 Tamsulosin HCl 0.4 mg 01/02/19 08:30 01/07/19 08:00 Flomax - PO 0.4 mg DAILY@0830 [facility] Administration Torsemide 20 mg 01/07/19 10:00 01/07/19 11:10 Demadex - PO 20 mg DAILY [facility] Administration Zinc Sulfate 220 mg 01/05/19 10:00 01/07/19 09:33 Orazinc - PO 220 mg DAILY [facility] Administration Impression 1. CKD vs ANNETTE with unclear baseline 2. DM 3. DFU 4. HTN 5. obesity 6. suprapubic cath Plan - increase torsemide to 100 mg starting tomorrow - will give a dose of lasix today - monitor renal function - ID follow up for abx - monitor urine output and volume status - elevated legs Dr Gongora
--- NOTE | 2019-01-07 13:37 | PN ---
Progress Note, Physician History of Present Illness: doing well legs look good nuclear scan seen and result noted - Current Medication List Current Medications: Active Medications Acetaminophen (Tylenol -) 325 mg PO Q6H PRN PRN Reason: PAIN LEVEL 4 - 6 Last Admin: 01/07/19 02:00 Dose: 325 mg Apixaban (Eliquis -) 5 mg PO BID [facility] Last Admin: 01/07/19 09:33 Dose: 5 mg Ascorbic Acid (Vitamin C -) 500 mg PO DAILY [facility] Last Admin: 01/07/19 09:33 Dose: 500 mg Bupropion HCl (Wellbutrin Xl -) 150 mg PO DAILY [facility] Last Admin: 01/07/19 09:33 Dose: 150 mg Collagenase (Santyl -) 1 applic TP DAILY [facility]; Protocol Last Admin: 01/07/19 11:10 Dose: 1 applic Dutasteride (Avodart -) 0.5 mg PO DAILY [facility] Last Admin: 01/07/19 09:32 Dose: 0.5 mg Escitalopram Oxalate (Lexapro -) 10 mg PO DAILY [facility] Last Admin: 01/07/19 09:33 Dose: 10 mg Gabapentin (Neurontin -) 300 mg PO DAILY [facility] Last Admin: 01/07/19 09:33 Dose: 300 mg Piperacillin Sod/Tazobactam (Sod 3.375 gm/ Dextrose) 50 mls @ 100 mls/hr IVPB Q8H-IV [facility]; Protocol Last Admin: 01/07/19 09:32 Dose: 100 mls/hr Vancomycin HCl 1,250 mg/ (Dextrose) 250 mls @ 250 mls/2 hr IVPB DAILY [facility]; Protocol Last Admin: 01/07/19 09:31 Dose: 250 mls/2 hr Insulin Aspart (Novolog Vial Sliding Scale -) 1 vial SQ ACHS [facility]; Protocol Last Admin: 01/07/19 10:57 Dose: 2 units Latanoprost (Xalatan 0.005% Eye Drops -) 1 drop OU HS [facility] Last Admin: 01/06/19 22:26 Dose: 1 drop Metoprolol Tartrate (Lopressor -) 25 mg PO DAILY [facility] Last Admin: 01/07/19 09:33 Dose: 25 mg Nystatin/Triamcinolone Acetonide (Mycolog Ii Cream -) 1 applic TP BID [facility] Last Admin: 01/07/19 09:33 Dose: 1 applic Oxycodone HCl (Roxicodone -) 5 mg PO Q4H PRN PRN Reason: PAIN 6-10 Last Admin: 01/07/19 01:59 Dose: 5 mg Oxycodone HCl (Roxicodone -) 5 mg PO Q6H PRN PRN Reason: PAIN LEVEL 4 - 6 Tamsulosin HCl (Flomax -) 0.4 mg PO DAILY@0830 [facility] Last Admin: 01/07/19 08:00 Dose: 0.4 mg Torsemide (Demadex -) 100 mg PO DAILY [facility] Zinc Sulfate (Orazinc -) 220 mg PO DAILY [facility] Last Admin: 01/07/19 09:33 Dose: 220 mg - Objective Vital Signs: Vital Signs Temperature 97.5 F L 01/07/19 10:00 Pulse Rate 84 01/07/19 10:00 Respiratory Rate 20 01/07/19 10:00 Blood Pressure 110/67 01/07/19 10:00 O2 Sat by Pulse Oximetry (%) 98 01/07/19 09:00 Constitutional: Yes: No Distress, Calm Cardiovascular: Yes: S1, S2 Respiratory: Yes: Regular, CTA Bilaterally Gastrointestinal: Yes: Normal Bowel Sounds, Soft Musculoskeletal: Yes: WNL Extremities: Yes: Other Neurological: Yes: Alert, Oriented Psychiatric: Yes: Alert, Oriented Labs: CBC, BMP 01/07/19 05:59 01/07/19 05:59 Assessment/Plan ASSESSMENT/PLAN: #73yo man with b/l foot cellulitis w- foul smelling erythematous feet b/l, discharge+ . #ANNETTE- may be from infection, prerenal azotemia #HTN #DM A fib- plan can change patient to doxy 100 mg po bid for 15 days and augmentin 500 mg po bid for 2 weeks wound care rest as per the team
[2019-01-07] MEDS: LATANOPROST 0.005% OPHTH SOLN 2.5ML BOTTLE OU SCH (21:52)
[2019-01-08] MEDS ORDERED: PIPERACILLIN/TAZOBACTAM 3.375 GM VIAL IVPB ONE ×2 (01:20→09:42)
[2019-01-08] MEDS ORDERED: DEXTROSE 5%-WATER - 50 ML IVPB ONE ×2 (01:20→09:42)
[2019-01-08 01:38] VITALS: TEMP 97.9
[2019-01-08] MEDS: PIPERACILLIN/TAZOB 3.375 GM 3.375 GM in DEXTROSE 5%-WATER - 50 ML IVPB SCH ×2 (02:04→10:26)
[2019-01-08] MEDS: INSULIN SLIDING SCALE (NOVOLOG) 1 VIAL SQ SCH ×3 (06:28→16:46)
[2019-01-08 07:40] LABS: ALBUMIN 2.7 g/dl (3.4-5.0); BLOOD UREA NITROGEN 27.2 mg/dL (7-18); CALCIUM 8.4 mg/dL (8.5-10.1); CREATININE 1.4 mg/dL (0.55-1.3); POTASSIUM 3.9 mmol/L (3.5-5.1); TOT PROT 6.4 g/dl (6.4-8.2)
[2019-01-08] MEDS ORDERED: PT OWN MED DRAWER 7, Y5N ONE ×3 (09:07→11:01)
[2019-01-08] MEDS: ESCITALOPRAM OXALATE 10 MG TABLET (FP) PO SCH (09:11)
[2019-01-08] MEDS: APIXABAN 5 MG TABLET PO SCH (09:11)
[2019-01-08] MEDS: TAMSULOSIN HCL 0.4 MG CAP PO SCH (09:11)
[2019-01-08] MEDS: METOPROLOL TARTRATE 25 MG TABLET (FP) PO SCH (09:11)
[2019-01-08] MEDS: ASCORBIC ACID 500 MG TABLET (FP) PO SCH (09:12)
[2019-01-08] MEDS: GABAPENTIN 300 MG CAPSULE (FP) PO SCH (09:12)
[2019-01-08] MEDS: MULTIVIT-MINERALS ORAL LIQUID PO SCH (09:12)
[2019-01-08] MEDS: NYSTATIN/TRIAMCINOLONE TOPICAL CREAM 15 GM TUBE TP SCH (09:13)
[2019-01-08] MEDS: ZINC SULFATE 220 MG CAPSULE (FP) PO SCH (10:26)
[2019-01-08] MEDS: COLLAGENASE CLOSTRIDIUM HIST. 30 GRAMS TUBE TP SCH (10:45)
[2019-01-08] MEDS: VANCOMYCIN HCL 1,250 MG in DEXTROSE 5%-WATER - 250 ML IVPB SCH (11:08)
[2019-01-08] MEDS: DUTASTERIDE 0.5 MG CAP (FP) PO SCH (11:09)
--- NOTE | 2019-01-08 13:23 | PN ---
Progress Note, Physician History of Present Illness: stable no new issues - Current Medication List Current Medications: Active Medications Acetaminophen (Tylenol -) 325 mg PO Q6H PRN PRN Reason: PAIN LEVEL 4 - 6 Last Admin: 01/07/19 02:00 Dose: 325 mg Apixaban (Eliquis -) 5 mg PO BID [facility] Last Admin: 01/08/19 09:11 Dose: 5 mg Ascorbic Acid (Vitamin C -) 500 mg PO DAILY [facility] Last Admin: 01/08/19 09:12 Dose: 500 mg Bupropion HCl (Wellbutrin Xl -) 150 mg PO DAILY [facility] Last Admin: 01/08/19 09:11 Dose: 150 mg Collagenase (Santyl -) 1 applic TP DAILY [facility]; Protocol Last Admin: 01/07/19 11:10 Dose: 1 applic Dutasteride (Avodart -) 0.5 mg PO DAILY [facility] Last Admin: 01/08/19 11:09 Dose: 0.5 mg Escitalopram Oxalate (Lexapro -) 10 mg PO DAILY [facility] Last Admin: 01/08/19 09:11 Dose: 10 mg Gabapentin (Neurontin -) 300 mg PO DAILY [facility] Last Admin: 01/08/19 09:12 Dose: 300 mg Piperacillin Sod/Tazobactam (Sod 3.375 gm/ Dextrose) 50 mls @ 100 mls/hr IVPB Q8H-IV [facility]; Protocol Last Admin: 01/08/19 10:26 Dose: 100 mls/hr Vancomycin HCl 1,250 mg/ (Dextrose) 250 mls @ 250 mls/2 hr IVPB DAILY [facility]; Protocol Last Admin: 01/08/19 11:08 Dose: 250 mls/2 hr Insulin Aspart (Novolog Vial Sliding Scale -) 1 vial SQ ACHS [facility]; Protocol Last Admin: 01/08/19 11:57 Dose: 10 units Latanoprost (Xalatan 0.005% Eye Drops -) 1 drop OU HS [facility] Last Admin: 01/07/19 21:52 Dose: 1 drop Metoprolol Tartrate (Lopressor -) 25 mg PO DAILY [facility] Last Admin: 01/08/19 09:11 Dose: 25 mg Nystatin/Triamcinolone Acetonide (Mycolog Ii Cream -) 1 applic TP BID [facility] Last Admin: 01/08/19 09:13 Dose: 1 applic Oxycodone HCl (Roxicodone -) 5 mg PO Q4H PRN PRN Reason: PAIN 6-10 Last Admin: 01/07/19 01:59 Dose: 5 mg Oxycodone HCl (Roxicodone -) 5 mg PO Q6H PRN PRN Reason: PAIN LEVEL 4 - 6 Tamsulosin HCl (Flomax -) 0.4 mg PO DAILY@0830 [facility] Last Admin: 01/08/19 09:11 Dose: 0.4 mg Torsemide (Demadex -) 100 mg PO DAILY [facility] Last Admin: 01/08/19 10:26 Dose: 100 mg Zinc Sulfate (Orazinc -) 220 mg PO DAILY [facility] Last Admin: 01/08/19 10:26 Dose: 220 mg - Objective Vital Signs: Vital Signs Temperature 97.9 F 01/07/19 22:00 Pulse Rate 88 01/07/19 22:00 Respiratory Rate 20 01/07/19 22:00 Blood Pressure 125/61 01/07/19 22:00 O2 Sat by Pulse Oximetry (%) 98 01/07/19 21:00 Constitutional: Yes: No Distress, Calm Cardiovascular: Yes: Regular Rate and Rhythm Respiratory: Yes: Regular, CTA Bilaterally Gastrointestinal: Yes: Normal Bowel Sounds, Soft Musculoskeletal: Yes: WNL Extremities: Yes: Other Wound/Incision: Yes: Dressing Dry and Intact Neurological: Yes: Alert, Oriented Psychiatric: Yes: Alert, Oriented Labs: CBC, BMP 01/07/19 05:59 01/08/19 06:02 Assessment/Plan ASSESSMENT/PLAN: #73yo man with b/l foot cellulitis w- foul smelling erythematous feet b/l, discharge+ . #ANNETTE- may be from infection, prerenal azotemia #HTN #DM A fib- plan can change patient to doxy 100 mg po bid for 15 days and augmentin 500 mg po bid for 2 weeks wound care rest as per the team
--- NOTE | 2019-01-08 14:37 | DS ---
Physical Examination Vital Signs: Vital Signs Temperature 97.9 F 01/07/19 22:00 Pulse Rate 88 01/07/19 22:00 Respiratory Rate 20 01/07/19 22:00 Blood Pressure 125/61 01/07/19 22:00 O2 Sat by Pulse Oximetry (%) 98 01/07/19 21:00 Findings/Remarks: Patient is a 73 y/o male with past medical history of uncontrolled DM, morbid obesity, HTN, depression. Patient presented to ER after having B/L redness, edema, foul smelling wounds to both feet. Constitutional: Yes: No Distress, Calm, Obese Eyes: Yes: Conjunctiva Clear HENT: Yes: Atraumatic Cardiovascular: Yes: Regular Rate and Rhythm Respiratory: Yes: Regular, CTA Bilaterally Gastrointestinal: Yes: Normal Bowel Sounds, Soft, Abdomen, Obese Renal/: Yes: Other (suprapubic catheter) Musculoskeletal: Yes: Muscle Weakness Extremities: Yes: WNL Edema: Yes (b/l lower extremity edema) Wound/Incision: Yes: Dressing Dry and Intact Neurological: Yes: Alert, Oriented Psychiatric: Yes: Alert, Oriented Labs: CBC, BMP 01/07/19 05:59 01/08/19 06:02 Microbiology 01/01/19 18:00 Foot - Right Heel Gram Stain - Final 01/01/19 18:00 Foot - Right Heel Wound Culture - Preliminary Non Lactose Fermenting Gnb Klebsiella Oxytoca Mr S Aureus Streptococcus Bovis Lactose Fermenting Neg Bacilli Pending Organism 01/01/19 16:40 Blood - Peripheral Venous Blood Culture - Final NO GROWTH AFTER 5 DAYS INCUBATION 01/01/19 16:40 Blood - Peripheral Venous Blood Culture - Final NO GROWTH AFTER 5 DAYS INCUBATION 01/01/19 18:00 Urine - Urine Clean Catch Urine Culture - Final Providencia Rettgeri Discharge Summary Reason For Visit: ULCER OF RIGHT FOOT LEG WOUND RIGHT Current Active Problems Afib (Acute) CKD (chronic kidney disease) (Acute) DVT (deep venous thrombosis) (Acute) Decubitus skin ulcer (Acute) Diabetes (Acute) Diabetes 1.5, managed as type 2 (Acute) Leg wound, right (Acute) Right foot ulcer (Acute) Hospital Course: see progress notes Laboratory Tests 01/01/19 01/01/19 01/01/19 16:40 16:40 16:40 WBC 12.4 H RBC 5.42 Hgb 14.8 Hct 44.9 MCV 82.8 MCH 27.3 MCHC 32.9 RDW 19.4 H Plt Count 215 MPV 8.4 Absolute Neuts (auto) 10.6 H Neutrophils % 85.7 H Lymphocytes % 5.8 L Monocytes % 7.3 Eosinophils % 0.5 Basophils % 0.7 Nucleated RBC % 0 ESR Sodium 138 Potassium 4.0 Chloride 101 Carbon Dioxide 28 Anion Gap 10 BUN 33.0 H Creatinine 1.5 H Est GFR (CKD-EPI)AfAm 52.03 Est GFR (CKD-EPI)NonAf 44.89 POC Glucometer Random Glucose 86 Lactic Acid 2.4 H* Calcium 8.9 Total Bilirubin 1.1 H AST 19 ALT 25 Alkaline Phosphatase 177 H C-Reactive Protein Total Protein 7.9 Albumin 3.4 Urine Color Urine Appearance Urine pH Ur Specific [place] Urine Protein Urine Glucose (UA) Urine Ketones Urine Blood Urine Nitrite Urine Bilirubin Urine Urobilinogen Ur Leukocyte Esterase Urine WBC (Auto) Urine RBC (Auto) Urine Casts (Auto) U Pathogenic Cast Auto U Epithel Cells (Auto) Urine Bacteria (Auto) Urine Yeast (Auto) U Random Total Protein Urine Creatinine Protein/Creatinin Ratio 01/01/19 01/01/19 01/02/19 18:00 21:30 04:02 WBC RBC Hgb Hct MCV MCH MCHC RDW Plt Count MPV Absolute Neuts (auto) Neutrophils % Lymphocytes % Monocytes % Eosinophils % Basophils % Nucleated RBC % ESR Sodium Potassium Chloride Carbon Dioxide Anion Gap BUN Creatinine Est GFR (CKD-EPI)AfAm Est GFR (CKD-EPI)NonAf POC Glucometer 54 129 Random Glucose Lactic Acid Calcium Total Bilirubin AST ALT Alkaline Phosphatase C-Reactive Protein Total Protein Albumin Urine Color Yellow Urine Appearance Cloudy Urine pH 7.5 Ur Specific [place] 1.010 Urine Protein 1+ H Urine Glucose (UA) Negative Urine Ketones Negative Urine Blood Negative Urine Nitrite Positive H Urine Bilirubin Negative Urine Urobilinogen 1.0 Ur Leukocyte Esterase 3+ H Urine WBC (Auto) 57 Urine RBC (Auto) 4 Urine Casts (Auto) 14 U Pathogenic Cast Auto None U Epithel Cells (Auto) 1.2 Urine Bacteria (Auto) 2406.0 Urine Yeast (Auto) None U Random Total Protein Urine Creatinine Protein/Creatinin Ratio 01/02/19 01/02/19 01/02/19 05:59 09:48 09:48 WBC 10.5 H RBC 4.84 Hgb 13.2 Hct 39.9 MCV 82.4 MCH 27.3 MCHC 33.2 RDW 19.0 H Plt Count 184 MPV 8.5 Absolute Neuts (auto) 8.5 H Neutrophils % 81.3 Lymphocytes % 7.6 L D Monocytes % 9.3 Eosinophils % 1.2 D Basophils % 0.6 Nucleated RBC % 0 ESR Sodium 139 Potassium 3.7 Chloride 103 Carbon Dioxide 30 Anion Gap 6 L BUN 30.9 H Creatinine 1.5 H Est GFR (CKD-EPI)AfAm 52.03 Est GFR (CKD-EPI)NonAf 44.89 POC Glucometer 194 Random Glucose 194 H Lactic Acid Calcium 8.7 Total Bilirubin AST ALT Alkaline Phosphatase C-Reactive Protein 2.7 H Total Protein Albumin Urine Color Urine Appearance Urine pH Ur Specific [place] Urine Protein Urine Glucose (UA) Urine Ketones Urine Blood Urine Nitrite Urine Bilirubin Urine Urobilinogen Ur Leukocyte Esterase Urine WBC (Auto) Urine RBC (Auto) Urine Casts (Auto) U Pathogenic Cast Auto U Epithel Cells (Auto) Urine Bacteria (Auto) Urine Yeast (Auto) U Random Total Protein Urine Creatinine Protein/Creatinin Ratio 01/02/19 01/02/19 01/02/19 09:48 09:48 09:48 WBC RBC Hgb Hct MCV MCH MCHC RDW Plt Count MPV Absolute Neuts (auto) Neutrophils % Lymphocytes % Monocytes % Eosinophils % Basophils % Nucleated RBC % ESR 15 Sodium 140 Potassium 3.8 Chloride 103 Carbon Dioxide 30 Anion Gap 7 L BUN Creatinine Est GFR (CKD-EPI)AfAm Est GFR (CKD-EPI)NonAf POC Glucometer Random Glucose Lactic Acid 1.6 Calcium Total Bilirubin AST ALT Alkaline Phosphatase C-Reactive Protein Total Protein Albumin Urine Color Urine Appearance Urine pH Ur Specific [place] Urine Protein Urine Glucose (UA) Urine Ketones Urine Blood Urine Nitrite Urine Bilirubin Urine Urobilinogen Ur Leukocyte Esterase Urine WBC (Auto) Urine RBC (Auto) Urine Casts (Auto) U Pathogenic Cast Auto U Epithel Cells (Auto) Urine Bacteria (Auto) Urine Yeast (Auto) U Random Total Protein Urine Creatinine Protein/Creatinin Ratio 01/02/19 01/02/19 01/02/19 11:36 16:14 20:40 WBC RBC Hgb Hct MCV MCH MCHC RDW Plt Count MPV Absolute Neuts (auto) Neutrophils % Lymphocytes % Monocytes % Eosinophils % Basophils % Nucleated RBC % ESR Sodium Potassium Chloride Carbon Dioxide Anion Gap BUN Creatinine Est GFR (CKD-EPI)AfAm Est GFR (CKD-EPI)NonAf POC Glucometer 184 201 Random Glucose Lactic Acid Calcium Total Bilirubin AST ALT Alkaline Phosphatase C-Reactive Protein Total Protein Albumin Urine Color Urine Appearance Urine pH Ur Specific [place] Urine Protein Urine Glucose (UA) Urine Ketones Urine Blood Urine Nitrite Urine Bilirubin Urine Urobilinogen Ur Leukocyte Esterase Urine WBC (Auto) Urine RBC (Auto) Urine Casts (Auto) U Pathogenic Cast Auto U Epithel Cells (Auto) Urine Bacteria (Auto) Urine Yeast (Auto) U Random Total Protein 121.3 H Urine Creatinine 68.0 Protein/Creatinin Ratio 1.780 01/02/19 01/02/19 01/03/19 20:40 21:58 06:39 WBC RBC Hgb Hct MCV MCH MCHC RDW Plt Count MPV Absolute Neuts (auto) Neutrophils % Lymphocytes % Monocytes % Eosinophils % Basophils % Nucleated RBC % ESR Sodium Potassium Chloride Carbon Dioxide Anion Gap BUN Creatinine Est GFR (CKD-EPI)AfAm Est GFR (CKD-EPI)NonAf POC Glucometer 240 124 Random Glucose Lactic Acid Calcium Total Bilirubin AST ALT Alkaline Phosphatase C-Reactive Protein Total Protein Albumin Urine Color Yellow Urine Appearance Cloudy Urine pH 5.5 D Ur Specific [place] 1.018 Urine Protein 2+ H Urine Glucose (UA) Negative Urine Ketones Negative Urine Blood 2+ H Urine Nitrite Negative Urine Bilirubin Negative Urine Urobilinogen 1.0 Ur Leukocyte Esterase 2+ H Urine WBC (Auto) 67 Urine RBC (Auto) 52 Urine Casts (Auto) 8 U Pathogenic Cast Auto U Epithel Cells (Auto) 0.6 Urine Bacteria (Auto) 157.8 Urine Yeast (Auto) U Random Total Protein Urine Creatinine Protein/Creatinin Ratio 01/03/19 01/03/19 01/03/19 07:11 12:18 17:20 WBC RBC Hgb Hct MCV MCH MCHC RDW Plt Count MPV Absolute Neuts (auto) Neutrophils % Lymphocytes % Monocytes % Eosinophils % Basophils % Nucleated RBC % ESR Sodium 142 Potassium 3.7 Chloride 107 Carbon Dioxide 31 Anion Gap 4 L BUN 24.8 H Creatinine 1.3 Est GFR (CKD-EPI)AfAm 61.86 Est GFR (CKD-EPI)NonAf 53.37 POC Glucometer 200 246 Random Glucose 126 H Lactic Acid Calcium 9.0 Total Bilirubin AST ALT Alkaline Phosphatase C-Reactive Protein Total Protein Albumin Urine Color Urine Appearance Urine pH Ur Specific [place] Urine Protein Urine Glucose (UA) Urine Ketones Urine Blood Urine Nitrite Urine Bilirubin Urine Urobilinogen Ur Leukocyte Esterase Urine WBC (Auto) Urine RBC (Auto) Urine Casts (Auto) U Pathogenic Cast Auto U Epithel Cells (Auto) Urine Bacteria (Auto) Urine Yeast (Auto) U Random Total Protein Urine Creatinine Protein/Creatinin Ratio 01/03/19 01/04/19 01/04/19 21:02 05:35 05:35 WBC 9.8 RBC 4.89 Hgb 13.5 Hct 40.5 MCV 82.9 MCH 27.6 MCHC 33.4 RDW 19.4 H Plt Count 193 MPV 8.4 Absolute Neuts (auto) Neutrophils % Lymphocytes % Monocytes % Eosinophils % Basophils % Nucleated RBC % ESR Sodium 138 Potassium 4.4 Chloride 103 Carbon Dioxide 28 Anion Gap 8 BUN 25.4 H Creatinine 1.4 H Est GFR (CKD-EPI)AfAm 56.56 Est GFR (CKD-EPI)NonAf 48.80 POC Glucometer 212 Random Glucose 185 H Lactic Acid Calcium 9.0 Total Bilirubin AST ALT Alkaline Phosphatase C-Reactive Protein Total Protein Albumin Urine Color Urine Appearance Urine pH Ur Specific [place] Urine Protein Urine Glucose (UA) Urine Ketones Urine Blood Urine Nitrite Urine Bilirubin Urine Urobilinogen Ur Leukocyte Esterase Urine WBC (Auto) Urine RBC (Auto) Urine Casts (Auto) U Pathogenic Cast Auto U Epithel Cells (Auto) Urine Bacteria (Auto) Urine Yeast (Auto) U Random Total Protein Urine Creatinine Protein/Creatinin Ratio 01/04/19 01/04/19 01/04/19 05:35 11:19 16:50 WBC RBC Hgb Hct MCV MCH MCHC RDW Plt Count MPV Absolute Neuts (auto) Neutrophils % Lymphocytes % Monocytes % Eosinophils % Basophils % Nucleated RBC % ESR Sodium Potassium Chloride Carbon Dioxide Anion Gap BUN Creatinine Est GFR (CKD-EPI)AfAm Est GFR (CKD-EPI)NonAf POC Glucometer 190 188 192 Random Glucose Lactic Acid Calcium Total Bilirubin AST ALT Alkaline Phosphatase C-Reactive Protein Total Protein Albumin Urine Color Urine Appearance Urine pH Ur Specific [place] Urine Protein Urine Glucose (UA) Urine Ketones Urine Blood Urine Nitrite Urine Bilirubin Urine Urobilinogen Ur Leukocyte Esterase Urine WBC (Auto) Urine RBC (Auto) Urine Casts (Auto) U Pathogenic Cast Auto U Epithel Cells (Auto) Urine Bacteria (Auto) Urine Yeast (Auto) U Random Total Protein Urine Creatinine Protein/Creatinin Ratio 01/04/19 01/05/19 01/05/19 21:18 06:01 06:25 WBC RBC Hgb Hct MCV MCH MCHC RDW Plt Count MPV Absolute Neuts (auto) Neutrophils % Lymphocytes % Monocytes % Eosinophils % Basophils % Nucleated RBC % ESR Sodium 138 Potassium 4.3 Chloride 104 Carbon Dioxide 29 Anion Gap 5 L BUN 27.4 H Creatinine 1.6 H Est GFR (CKD-EPI)AfAm 48.13 Est GFR (CKD-EPI)NonAf 41.53 POC Glucometer 235 149 Random Glucose 139 H Lactic Acid Calcium 9.0 Total Bilirubin 1.3 H AST 11 L ALT 18 Alkaline Phosphatase 151 H C-Reactive Protein Total Protein 6.6 Albumin 3.0 L Urine Color Urine Appearance Urine pH Ur Specific [place] Urine Protein Urine Glucose (UA) Urine Ketones Urine Blood Urine Nitrite Urine Bilirubin Urine Urobilinogen Ur Leukocyte Esterase Urine WBC (Auto) Urine RBC (Auto) Urine Casts (Auto) U Pathogenic Cast Auto U Epithel Cells (Auto) Urine Bacteria (Auto) Urine Yeast (Auto) U Random Total Protein Urine Creatinine Protein/Creatinin Ratio 01/05/19 01/05/19 01/05/19 11:25 17:12 21:36 WBC RBC Hgb Hct MCV MCH MCHC RDW Plt Count MPV Absolute Neuts (auto) Neutrophils % Lymphocytes % Monocytes % Eosinophils % Basophils % Nucleated RBC % ESR Sodium Potassium Chloride Carbon Dioxide Anion Gap BUN Creatinine Est GFR (CKD-EPI)AfAm Est GFR (CKD-EPI)NonAf POC Glucometer 201 225 203 Random Glucose Lactic Acid Calcium Total Bilirubin AST ALT Alkaline Phosphatase C-Reactive Protein Total Protein Albumin Urine Color Urine Appearance Urine pH Ur Specific [place] Urine Protein Urine Glucose (UA) Urine Ketones Urine Blood Urine Nitrite Urine Bilirubin Urine Urobilinogen Ur Leukocyte Esterase Urine WBC (Auto) Urine RBC (Auto) Urine Casts (Auto) U Pathogenic Cast Auto U Epithel Cells (Auto) Urine Bacteria (Auto) Urine Yeast (Auto) U Random Total Protein Urine Creatinine Protein/Creatinin Ratio 01/06/19 01/06/19 01/06/19 06:57 11:21 16:23 WBC RBC Hgb Hct MCV MCH MCHC RDW Plt Count MPV Absolute Neuts (auto) Neutrophils % Lymphocytes % Monocytes % Eosinophils % Basophils % Nucleated RBC % ESR Sodium Potassium Chloride Carbon Dioxide Anion Gap BUN Creatinine Est GFR (CKD-EPI)AfAm Est GFR (CKD-EPI)NonAf POC Glucometer 158 202 233 Random Glucose Lactic Acid Calcium Total Bilirubin AST ALT Alkaline Phosphatase C-Reactive Protein Total Protein Albumin Urine Color Urine Appearance Urine pH Ur Specific [place] Urine Protein Urine Glucose (UA) Urine Ketones Urine Blood Urine Nitrite Urine Bilirubin Urine Urobilinogen Ur Leukocyte Esterase Urine WBC (Auto) Urine RBC (Auto) Urine Casts (Auto) U Pathogenic Cast Auto U Epithel Cells (Auto) Urine Bacteria (Auto) Urine Yeast (Auto) U Random Total Protein Urine Creatinine Protein/Creatinin Ratio 01/06/19 01/07/19 01/07/19 22:08 05:59 05:59 WBC 8.6 RBC 4.74 Hgb 13.3 Hct 39.7 MCV 83.7 MCH 28.1 MCHC 33.5 RDW 19.2 H Plt Count 165 MPV 8.5 Absolute Neuts (auto) Neutrophils % Lymphocytes % Monocytes % Eosinophils % Basophils % Nucleated RBC % ESR Sodium 140 Potassium 3.8 Chloride 107 Carbon Dioxide 24 Anion Gap 9 BUN 27.5 H Creatinine 1.4 H Est GFR (CKD-EPI)AfAm 56.56 Est GFR (CKD-EPI)NonAf 48.80 POC Glucometer 261 Random Glucose 150 H Lactic Acid Calcium 8.5 Total Bilirubin AST ALT Alkaline Phosphatase C-Reactive Protein Total Protein Albumin Urine Color Urine Appearance Urine pH Ur Specific [place] Urine Protein Urine Glucose (UA) Urine Ketones Urine Blood Urine Nitrite Urine Bilirubin Urine Urobilinogen Ur Leukocyte Esterase Urine WBC (Auto) Urine RBC (Auto) Urine Casts (Auto) U Pathogenic Cast Auto U Epithel Cells (Auto) Urine Bacteria (Auto) Urine Yeast (Auto) U Random Total Protein Urine Creatinine Protein/Creatinin Ratio 01/07/19 01/07/19 01/07/19 06:05 11:02 16:22 WBC RBC Hgb Hct MCV MCH MCHC RDW Plt Count MPV Absolute Neuts (auto) Neutrophils % Lymphocytes % Monocytes % Eosinophils % Basophils % Nucleated RBC % ESR Sodium Potassium Chloride Carbon Dioxide Anion Gap BUN Creatinine Est GFR (CKD-EPI)AfAm Est GFR (CKD-EPI)NonAf POC Glucometer 166 169 209 Random Glucose Lactic Acid Calcium Total Bilirubin AST ALT Alkaline Phosphatase C-Reactive Protein Total Protein Albumin Urine Color Urine Appearance Urine pH Ur Specific [place] Urine Protein Urine Glucose (UA) Urine Ketones Urine Blood Urine Nitrite Urine Bilirubin Urine Urobilinogen Ur Leukocyte Esterase Urine WBC (Auto) Urine RBC (Auto) Urine Casts (Auto) U Pathogenic Cast Auto U Epithel Cells (Auto) Urine Bacteria (Auto) Urine Yeast (Auto) U Random Total Protein Urine Creatinine Protein/Creatinin Ratio 01/07/19 01/08/19 01/08/19 21:50 05:50 06:02 WBC RBC Hgb Hct MCV MCH MCHC RDW Plt Count MPV Absolute Neuts (auto) Neutrophils % Lymphocytes % Monocytes % Eosinophils % Basophils % Nucleated RBC % ESR Sodium 141 Potassium 3.9 Chloride 107 Carbon Dioxide 26 Anion Gap 8 BUN 27.2 H Creatinine 1.4 H Est GFR (CKD-EPI)AfAm 56.56 Est GFR (CKD-EPI)NonAf 48.80 POC Glucometer 260 183 Random Glucose 177 H Lactic Acid Calcium 8.4 L Total Bilirubin 1.0 AST 11 L ALT 18 Alkaline Phosphatase 138 H C-Reactive Protein Total Protein 6.4 Albumin 2.7 L Urine Color Urine Appearance Urine pH Ur Specific [place] Urine Protein Urine Glucose (UA) Urine Ketones Urine Blood Urine Nitrite Urine Bilirubin Urine Urobilinogen Ur Leukocyte Esterase Urine WBC (Auto) Urine RBC (Auto) Urine Casts (Auto) U Pathogenic Cast Auto U Epithel Cells (Auto) Urine Bacteria (Auto) Urine Yeast (Auto) U Random Total Protein Urine Creatinine Protein/Creatinin Ratio 01/08/19 11:44 WBC RBC Hgb Hct MCV MCH MCHC RDW Plt Count MPV Absolute Neuts (auto) Neutrophils % Lymphocytes % Monocytes % Eosinophils % Basophils % Nucleated RBC % ESR Sodium Potassium Chloride Carbon Dioxide Anion Gap BUN Creatinine Est GFR (CKD-EPI)AfAm Est GFR (CKD-EPI)NonAf POC Glucometer 239 Random Glucose Lactic Acid Calcium Total Bilirubin AST ALT Alkaline Phosphatase C-Reactive Protein Total Protein Albumin Urine Color Urine Appearance Urine pH Ur Specific [place] Urine Protein Urine Glucose (UA) Urine Ketones Urine Blood Urine Nitrite Urine Bilirubin Urine Urobilinogen Ur Leukocyte Esterase Urine WBC (Auto) Urine RBC (Auto) Urine Casts (Auto) U Pathogenic Cast Auto U Epithel Cells (Auto) Urine Bacteria (Auto) Urine Yeast (Auto) U Random Total Protein Urine Creatinine Protein/Creatinin Ratio Home Medication List Medication Instructions Recorded Confirmed Type Klor-Con-Ef 25 Meq Tab Eff 20 meq PO BID 06/28/11 01/01/19 History Xalatan Ophth Drops 1 gtt OU HS 06/28/11 01/01/19 History Tamsulosin HCl [Flomax -] 0.4 mg PO DAILY 02/27/13 01/01/19 History Glyburide/Metformin HCl 1 each PO DAILY 10/09/16 01/01/19 History [Glyburide-Metformin 5-500 mg] Oxycodone HCl/Acetaminophen 1 tab PO Q4H PRN 10/09/16 01/01/19 History [Percocet 5-325 mg Tablet] Sitagliptin Phos/Metformin HCl 1 each PO DAILY 10/09/16 01/01/19 History [Janumet 50-500 mg Tablet] Torsemide [Demadex] 5 mg PO DAILY 10/09/16 01/01/19 History Apixaban [Eliquis] 5 mg PO DAILY 10/27/18 01/01/19 History Bumetanide 2 mg PO DAILY 10/27/18 01/01/19 History Bupropion HCl [Wellbutrin Sr] 100 mg PO DAILY 10/27/18 01/01/19 History Escitalopram Oxalate [Lexapro -] 10 mg PO DAILY 10/27/18 01/01/19 History Gabapentin [Neurontin -] 300 mg PO DAILY 10/27/18 01/01/19 History Hydralazine HCl 10 mg PO DAILY 10/27/18 01/01/19 History Insulin Glargine,Hum.rec.anlog 0 unit SQ DAILY 10/27/18 01/01/19 History [Toujeo Solostar] Insulin Lispro [Humalog] 0 unit SQ DAILY 10/27/18 01/01/19 History Metoprolol Tartrate [Lopressor -] 25 mg PO DAILY 10/27/18 01/01/19 History Mirabegron [Myrbetriq] 50 mg PO DAILY 10/27/18 01/01/19 History Active Medications Generic Name Dose Route Start Last Admin Trade Name Freq PRN Reason Stop Dose Admin Acetaminophen 325 mg 01/07/19 01:42 01/07/19 02:00 Tylenol - PO 325 mg Q6H PRN Administration PAIN LEVEL 4 - 6 Amoxicillin/Clavulanate Potassium 1 tab 01/08/19 17:30 Augmentin - 500mg Tablet PO 01/22/19 17:29 BID@0800,1730 FAIZA Apixaban 5 mg 01/02/19 10:00 01/08/19 09:11 Eliquis - PO 5 mg BID FAIZA Administration Ascorbic Acid 500 mg 01/05/19 10:00 01/08/19 09:12 Vitamin C - PO 500 mg DAILY FAIZA Administration Bupropion HCl 150 mg 01/02/19 10:00 01/08/19 09:11 Wellbutrin Xl - PO 150 mg DAILY FAIZA Administration Collagenase 1 applic 01/07/19 10:00 01/07/19 11:10 Santyl - TP 1 applic DAILY FAIZA Administration Protocol Doxycycline Hyclate 100 mg 01/08/19 18:00 Vibramycin - PO 01/22/19 17:59 BID@1000,1800 FAIZA Dutasteride 0.5 mg 01/02/19 10:00 01/08/19 11:09 Avodart - PO 0.5 mg DAILY FAIZA Administration Escitalopram Oxalate 10 mg 01/02/19 10:00 01/08/19 09:11 Lexapro - PO 10 mg DAILY FAIZA Administration Gabapentin 300 mg 01/02/19 10:00 01/08/19 09:12 Neurontin - PO 300 mg DAILY FAIZA Administration Insulin Aspart 1 vial 01/01/19 22:00 01/08/19 11:57 Novolog Vial Sliding Scale - SQ 10 units ACHS FAIZA Administration Protocol Latanoprost 1 drop 01/01/19 22:00 01/07/19 21:52 Xalatan 0.005% Eye Drops - OU 1 drop HS FAIZA Administration Metoprolol Tartrate 25 mg 01/02/19 10:27 01/08/19 09:11 Lopressor - PO 25 mg DAILY FAIZA Administration Nystatin/Triamcinolone Acetonide 1 applic 01/05/19 10:00 01/08/19 09:13 Mycolog Ii Cream - TP 1 applic BID FAIZA Administration Oxycodone HCl 5 mg 01/01/19 21:56 01/07/19 01:59 Roxicodone - PO 5 mg Q4H PRN Administration PAIN 6-10 Oxycodone HCl 5 mg 01/07/19 01:41 Roxicodone - PO Q6H PRN PAIN LEVEL 4 - 6 Tamsulosin HCl 0.4 mg 01/02/19 08:30 01/08/19 09:11 Flomax - PO 0.4 mg DAILY@0830 [facility] Administration Torsemide 100 mg 01/07/19 12:49 01/08/19 10:26 Demadex - PO 100 mg DAILY FAIZA Administration Zinc Sulfate 220 mg 01/09/19 08:00 Orazinc - PO DAILY@0800 [facility] Microbiology 01/01/19 18:00 Foot - Right Heel Gram Stain - Final 01/01/19 18:00 Foot - Right Heel Wound Culture - Preliminary Non Lactose Fermenting Gnb Klebsiella Oxytoca Mr S Aureus Streptococcus Bovis Lactose Fermenting Neg Bacilli Pending Organism 01/01/19 16:40 Blood - Peripheral Venous Blood Culture - Final NO GROWTH AFTER 5 DAYS INCUBATION 01/01/19 16:40 Blood - Peripheral Venous Blood Culture - Final NO GROWTH AFTER 5 DAYS INCUBATION 01/01/19 18:00 Urine - Urine Clean Catch Urine Culture - Final Providencia Rettgeri Condition: Stable - Instructions Diet, Activity, Other Instructions: follow up with PMD in 1 week follow up with [facility] Gongora follow up with Podiatry Dr Rosas follow up with Vascular Dr Soilman continue with antibiotics as prescribed patient going home with visiting nurse services for wound care and PT services return to ER if develop fever, chills, altered mental status, chest pain, respiratory distress, worsening infection Referrals: Whit Gongora MD [Staff Physician] - Cecile Rosas DPM [Staff Physician] - Derick Soliman DO [Staff Physician] - Disposition: [facility]/HOME HEALTH CARE - Home Medications Comprehensive Discharge Medication List: Ambulatory Orders Klor-Con-Ef 25 Meq Tab Eff 20 meq PO BID 06/28/11 Xalatan Ophth Drops 1 gtt OU HS 06/28/11 Tamsulosin HCl [Flomax -] 0.4 mg PO DAILY 02/27/13 Glyburide/Metformin HCl [Glyburide-Metformin 5-500 mg] 1 each PO DAILY 10/09/16 Oxycodone HCl/Acetaminophen [Percocet 5-325 mg Tablet] 1 tab PO Q4H PRN Sitagliptin Phos/Metformin HCl [Janumet 50-500 mg Tablet] 1 each PO DAILY Torsemide [Demadex] 5 mg PO DAILY 10/09/16 Apixaban [Eliquis] 5 mg PO DAILY 10/27/18 Bumetanide 2 mg PO DAILY 10/27/18 Bupropion HCl [Wellbutrin Sr] 100 mg PO DAILY 10/27/18 Escitalopram Oxalate [Lexapro -] 10 mg PO DAILY 10/27/18 Gabapentin [Neurontin -] 300 mg PO DAILY 10/27/18 Hydralazine HCl 10 mg PO DAILY 10/27/18 Insulin Glargine,Hum.rec.anlog [Toujeo Solostar] 0 unit SQ DAILY 10/27/18 Insulin Lispro [Humalog] 0 unit SQ DAILY 10/27/18 Metoprolol Tartrate [Lopressor -] 25 mg PO DAILY 10/27/18 Mirabegron [Myrbetriq] 50 mg PO DAILY 10/27/18 Acetaminophen [Tylenol .Regular Strength -] 325 mg PO Q6H PRN tablet 01/08/19 Amox-Tr/K Cl [Augmentin 500-125mg Tablet -] 1 tab PO BID@0800,1730 14 Days #28 tablet 01/08/19 Ascorbic Acid [Vitamin C -] 500 mg PO DAILY #30 tablet 01/08/19 Bupropion HCl [Wellbutrin Xl -] 150 mg PO DAILY #30 tab.sr.24h 01/08/19 Collagenase Clostridium Hist. [Santyl -] 1 applic TP DAILY #1 tube 01/08/19 Doxycycline Hyclate [Vibramycin -] 100 mg PO BID@1000,1800 #28 capsule 01/08/19 Dutasteride [Avodart] 0.5 mg PO DAILY cap 01/08/19 Nystatin/Triamcinolone Top Cr [Mycolog II -] 1 applic TP BID #1 tube 01/08/19 Torsemide [Demadex -] 100 mg PO DAILY #30 tablet 01/08/19 Zinc Sulfate [Orazinc -] 220 mg PO DAILY #30 capsule 01/08/19
--- NOTE | 2019-01-08 15:36 | PN ---
Progress Note, Physician History of Present Illness: Pt seen and examined at bedside. He is awake and alert. He feels that his edema is improving. - Current Medication List Current Medications: Active Medications Acetaminophen (Tylenol -) 325 mg PO Q6H PRN PRN Reason: PAIN LEVEL 4 - 6 Last Admin: 01/07/19 02:00 Dose: 325 mg Amoxicillin/Clavulanate Potassium (Augmentin - 500mg Tablet) 1 tab PO BID@0800, 1730 [facility] Stop: 01/22/19 17:29 Apixaban (Eliquis -) 5 mg PO BID [facility] Last Admin: 01/08/19 09:11 Dose: 5 mg Ascorbic Acid (Vitamin C -) 500 mg PO DAILY [facility] Last Admin: 01/08/19 09:12 Dose: 500 mg Bupropion HCl (Wellbutrin Xl -) 150 mg PO DAILY [facility] Last Admin: 01/08/19 09:11 Dose: 150 mg Collagenase (Santyl -) 1 applic TP DAILY [facility]; Protocol Last Admin: 01/07/19 11:10 Dose: 1 applic Doxycycline Hyclate (Vibramycin -) 100 mg PO BID@1000,1800 [facility] Stop: 01/22/19 17:59 Dutasteride (Avodart -) 0.5 mg PO DAILY [facility] Last Admin: 01/08/19 11:09 Dose: 0.5 mg Escitalopram Oxalate (Lexapro -) 10 mg PO DAILY [facility] Last Admin: 01/08/19 09:11 Dose: 10 mg Gabapentin (Neurontin -) 300 mg PO DAILY [facility] Last Admin: 01/08/19 09:12 Dose: 300 mg Insulin Aspart (Novolog Vial Sliding Scale -) 1 vial SQ ACHS [facility]; Protocol Last Admin: 01/08/19 11:57 Dose: 10 units Latanoprost (Xalatan 0.005% Eye Drops -) 1 drop OU HS [facility] Last Admin: 01/07/19 21:52 Dose: 1 drop Metoprolol Tartrate (Lopressor -) 25 mg PO DAILY [facility] Last Admin: 01/08/19 09:11 Dose: 25 mg Nystatin/Triamcinolone Acetonide (Mycolog Ii Cream -) 1 applic TP BID [facility] Last Admin: 01/08/19 09:13 Dose: 1 applic Oxycodone HCl (Roxicodone -) 5 mg PO Q4H PRN PRN Reason: PAIN 6-10 Last Admin: 01/07/19 01:59 Dose: 5 mg Oxycodone HCl (Roxicodone -) 5 mg PO Q6H PRN PRN Reason: PAIN LEVEL 4 - 6 Tamsulosin HCl (Flomax -) 0.4 mg PO DAILY@0830 [facility] Last Admin: 01/08/19 09:11 Dose: 0.4 mg Torsemide (Demadex -) 100 mg PO DAILY [facility] Last Admin: 01/08/19 10:26 Dose: 100 mg Zinc Sulfate (Orazinc -) 220 mg PO DAILY@0800 [facility] - Objective Vital Signs: Vital Signs Temperature 97.9 F 01/07/19 22:00 Pulse Rate 88 01/07/19 22:00 Respiratory Rate 20 01/07/19 22:00 Blood Pressure 125/61 01/07/19 22:00 O2 Sat by Pulse Oximetry (%) 98 01/07/19 21:00 Constitutional: Yes: Calm Eyes: Yes: Conjunctiva Clear HENT: Yes: Atraumatic Neck: Yes: Supple Cardiovascular: Yes: S1, S2 Respiratory: Yes: CTA Bilaterally Gastrointestinal: Yes: Soft Genitourinary: Yes: Other (suprapubic cath) Edema: Yes Edema: LLE: 2+, RLE: 2+ Integumentary: Yes: Venous Stasis Changes Neurological: Yes: Oriented Psychiatric: Yes: Oriented Labs: CBC, BMP 01/07/19 05:59 01/08/19 06:02 Problem List - Problems (1) CKD (chronic kidney disease) Code(s): N18.9 - CHRONIC KIDNEY DISEASE, UNSPECIFIED (2) Leg wound, right Code(s): S81.801A - UNSPECIFIED OPEN WOUND, RIGHT LOWER LEG, INITIAL ENCOUNTER (3) Venous stasis dermatitis of both lower extremities Code(s): I87.2 - VENOUS INSUFFICIENCY (CHRONIC) (PERIPHERAL) Assessment/Plan Current Medications Generic Name Dose Route Start Last Admin Trade Name Freq PRN Reason Stop Dose Admin Acetaminophen 325 mg 01/07/19 01:42 01/07/19 02:00 Tylenol - PO 325 mg Q6H PRN Administration PAIN LEVEL 4 - 6 Amoxicillin/Clavulanate Potassium 1 tab 01/08/19 17:30 Augmentin - 500mg Tablet PO 01/22/19 17:29 BID@0800,1730 [facility] Apixaban 5 mg 01/02/19 10:00 01/08/19 09:11 Eliquis - PO 5 mg BID [facility] Administration Ascorbic Acid 500 mg 01/05/19 10:00 01/08/19 09:12 Vitamin C - PO 500 mg DAILY [facility] Administration Bupropion HCl 150 mg 01/02/19 10:00 01/08/19 09:11 Wellbutrin Xl - PO 150 mg DAILY [facility] Administration Collagenase 1 applic 01/07/19 10:00 01/07/19 11:10 Santyl - TP 1 applic DAILY [facility] Administration Protocol Doxycycline Hyclate 100 mg 01/08/19 18:00 Vibramycin - PO 01/22/19 17:59 BID@1000,1800 [facility] Dutasteride 0.5 mg 01/02/19 10:00 01/08/19 11:09 Avodart - PO 0.5 mg DAILY [facility] Administration Escitalopram Oxalate 10 mg 01/02/19 10:00 01/08/19 09:11 Lexapro - PO 10 mg DAILY [facility] Administration Gabapentin 300 mg 01/02/19 10:00 01/08/19 09:12 Neurontin - PO 300 mg DAILY [facility] Administration Insulin Aspart 1 vial 01/01/19 22:00 01/08/19 11:57 Novolog Vial Sliding Scale - SQ 10 units ACHS [facility] Administration Protocol Latanoprost 1 drop 01/01/19 22:00 01/07/19 21:52 Xalatan 0.005% Eye Drops - OU 1 drop HS [facility] Administration Metoprolol Tartrate 25 mg 01/02/19 10:27 01/08/19 09:11 Lopressor - PO 25 mg DAILY [facility] Administration Nystatin/Triamcinolone Acetonide 1 applic 01/05/19 10:00 01/08/19 09:13 Mycolog Ii Cream - TP 1 applic BID [facility] Administration Oxycodone HCl 5 mg 01/01/19 21:56 01/07/19 01:59 Roxicodone - PO 5 mg Q4H PRN Administration PAIN 6-10 Oxycodone HCl 5 mg 01/07/19 01:41 Roxicodone - PO Q6H PRN PAIN LEVEL 4 - 6 Tamsulosin HCl 0.4 mg 01/02/19 08:30 01/08/19 09:11 Flomax - PO 0.4 mg DAILY@0830 [facility] Administration Torsemide 100 mg 01/07/19 12:49 01/08/19 10:26 Demadex - PO 100 mg DAILY [facility] Administration Zinc Sulfate 220 mg 01/09/19 08:00 Orazinc - PO DAILY@0800 [facility] Impression 1. CKD vs ANNETTE with unclear baseline 2. DM 3. DFU 4. HTN 5. obesity 6. suprapubic cath Plan - cont with torsemide - monitor volume status - will need outpt follow up - ID follow up for abx - monitor urine output and volume status - elevated legs - cont wound care Dr Gongora
[2019-01-08 15:39] VITALS: PULSE 77
[2019-01-08] MEDS ORDERED: AMOX TR/POT CLAV 500MG/125MG TABLETS (FP) PO SCH (17:30)
[2019-01-08 17:50] VITALS: BP 130/80
[2019-01-08] MEDS ORDERED: DOXYCYCLINE HYCLATE 100 MG CAPSULE PO SCH (18:00)
[2019-01-09] MEDS ORDERED: MULTIVIT-MINERALS ORAL LIQUID PO SCH (08:00)
[2019-01-09] MEDS ORDERED: ZINC SULFATE 220 MG CAPSULE (FP) PO SCH (08:00)
== END 2019-01-08 18:00 | disposition home health service (06) | DRG 638 ==
LOC: JER 15:22 → JERBED 18:01 → J7W 21:05
PROVIDERS: ADMIT Family Medicine; ATTEND Family Medicine
DX: E11.622 Type 2 diabetes mellitus with other skin ulcer (principal); L03.115 Cellulitis of right lower limb; L03.116 Cellulitis of left lower limb; Z68.42 Body mass index [BMI] 45.0-49.9, adult; E87.2 Acidosis; I13.0 Hypertensive heart and chronic kidney disease with heart failure and stage 1 through stage 4 chronic kidney disease, or unspecified chronic kidney disease; E11.22 Type 2 diabetes mellitus with diabetic chronic kidney disease; N18.9 Chronic kidney disease, unspecified; I50.9 Heart failure, unspecified; E11.65 Type 2 diabetes mellitus with hyperglycemia; A49.02 Methicillin resistant Staphylococcus aureus infection, unspecified site; I82.432 Acute embolism and thrombosis of left popliteal vein; I48.91 Unspecified atrial fibrillation; L97.519 Non-pressure chronic ulcer of other part of right foot with unspecified severity; I87.2 Venous insufficiency (chronic) (peripheral); R32 Unspecified urinary incontinence; Z79.4 Long term (current) use of insulin; Z79.84 Long term (current) use of oral hypoglycemic drugs; F03.90 Unspecified dementia, unspecified severity, without behavioral disturbance, psychotic disturbance, mood disturbance, and anxiety; Z96.653 Presence of artificial knee joint, bilateral; N17.9 Acute kidney failure, unspecified; E66.01 Morbid (severe) obesity due to excess calories; F32.9 Major depressive disorder, single episode, unspecified
CPT/HCPCS: 36415; 71045-TC-FY; 73630-TC-LT; 73630-TC-RT-FY; 76775-TC; 78315-TC; 80048; 80051; 80053; 81003; 82570; 82962; 83605; 84156; 85025; 85027; 85651; 86140; 87040; 87070; 87086; 87186; 87205; 93005; 93010; 93306-TC; 93970-TC; 99281-25; A9503; G0463-25; J7030